=== PATIENT | female | born 1930 | race Caucasian/White ===

== ENCOUNTER 2018-06-27 14:24 | Inpatient (IN) | payer MEDICARE, OTHER ==
[2018-06-27] MEDS ORDERED: ONDANSETRON 4 MG/2 ML VIAL IVP PRN (15:06)
[2018-06-27] MEDS: SODIUM CHLORIDE FLUSH 0.9% 10 ML SYRINGE IVP SCH (20:30)
[2018-06-27] MEDS: DEXTROSE 5%-0.45% NACL 1,000 ML IV SCH (20:30)
--- NOTE | 2018-06-27 20:35 | ANESTHESIA PROCEDURE NOTE ---
Procedure Notes: Called for difficult IV start. #20 G IV started to Left AC X1 attempt. Lab work drawn. Saline lock applied and flushed.
[2018-06-27 20:49] LABS: BASOPHILS # (AUTO) 0.1 10^3/uL (0.0-0.1); BASOPHILS % (AUTO) 0.6 %; EOSINOPHILS # (AUTO) 0.2 10^3/uL (0.0-0.7); EOSINOPHILS % (AUTO) 1.5 %; HGB - HEMOGLOBIN 10.4 g/dL (12.0-16.0); LYMPHOCYTES % (AUTO) 7.9 %; MEAN CORPUSCULAR HEMOGLOBIN 30.1 pg (27.0-31.0); MEAN CORPUSCULAR VOLUME 91.1 fL (81.0-99.0); MEAN PLATELET VOLUME 9.6 fL (7.9-10.8); MONOCYTES % (AUTO) 7.4 %; NEUTROPHILS # (AUTO) 10.9 10^3/uL (1.5-6.6); NEUTROPHILS % (AUTO) 82.6 %; PLT - PLATELET COUNT 189 10^3/uL (130-450); RED BLOOD COUNT 3.47 10^6/uL (4.20-5.40); RED CELL DISTRIBUTION WIDTH 13.2 % (12.0-15.0); WHITE BLOOD COUNT 13.2 x10^3/uL (4.8-10.8)
[2018-06-27 21:14] LABS: ALBUMIN 2.7 g/dL (3.2-5.5); BILIRUBIN,TOTAL 0.5 mg/dL (0.2-1.0); CALCIUM 7.8 mg/dL (8.5-10.3); CREATININE 2.1 mg/dL (0.4-1.0); MAGNESIUM 2.1 mg/dL (1.7-2.8); TOTAL PROTEIN 5.5 g/dL (6.7-8.2)
[2018-06-27 21:17] LABS: HB2 TOTAL 10.9 g/dL; HEMOGLOBIN A1C 0.53 g/dL; HEMOGLOBIN A1C % 6.6 % (4.6-6.2)
[2018-06-27] MEDS: FAMOTIDINE 20 MG TABLET PO SCH (22:36)
[2018-06-27] MEDS: HEPARIN 5,000 UNIT/ML VIAL SUBQ SCH (22:56)
[2018-06-27] MEDS: ACETAMINOPHEN 325 MG TABLET PO PRN (23:44)
[2018-06-28] MEDS: NYSTATIN CREAM 15 GM TUBE TOP SCH ×3 (00:57→20:51)
[2018-06-28] MEDS: SODIUM CHLORIDE FLUSH 0.9% 10 ML SYRINGE IVP SCH ×4 (05:25→23:36)
[2018-06-28] MEDS: DEXTROSE 5%-0.45% NACL 1,000 ML IV SCH ×2 (05:25→06:26)
[2018-06-28 05:54] LABS: BASOPHILS # (AUTO) 0.1 10^3/uL (0.0-0.1); BASOPHILS % (AUTO) 0.5 %; EOSINOPHILS # (AUTO) 0.2 10^3/uL (0.0-0.7); LYMPHOCYTES # (AUTO) 1.4 10^3/uL (1.5-3.5); LYMPHOCYTES % (AUTO) 12.1 %; MEAN CORPUSCULAR HEMOGLOBIN 30.1 pg (27.0-31.0); MEAN CORPUSCULAR HGB CONC 33.1 g/dL (32.0-36.0); MEAN CORPUSCULAR VOLUME 90.8 fL (81.0-99.0); MEAN PLATELET VOLUME 9.4 fL (7.9-10.8); MONOCYTES # (AUTO) 0.9 10^3/uL (0.0-1.0); MONOCYTES % (AUTO) 7.9 %; NEUTROPHILS % (AUTO) 77.5 %; PLT - PLATELET COUNT 165 10^3/uL (130-450); RED BLOOD COUNT 3.32 10^6/uL (4.20-5.40); RED CELL DISTRIBUTION WIDTH 13.7 % (12.0-15.0); WHITE BLOOD COUNT 11.6 x10^3/uL (4.8-10.8)
[2018-06-28 06:08] LABS: ALBUMIN 2.6 g/dL (3.2-5.5); ALBUMIN/GLOBULIN RATIO 0.9 (1.0-2.2); BILIRUBIN,TOTAL 0.4 mg/dL (0.2-1.0); CALCIUM 7.5 mg/dL (8.5-10.3); TOTAL PROTEIN 5.4 g/dL (6.7-8.2)
--- NOTE | 2018-06-28 06:15 | HISTORY & PHYSICAL EXAMINATION ---
Chief Complaint - Chief Complaint Chief Complaint: hypoglycemia History of Present Illness - Admitted From Admitted From:: [facility] ED - History Obtained From Records Reviewed: yes - History of Present Illness HPI Comment/Other: Patient is an 87 y/o female who presented to [facility] as a direct admit from [facility] for hypoglycemia. Her symptoms initially started 6 days ago when on night she ate something bad from her refrigerator. She had nausea, vomiting and diarrhea for three days. For those 3 days she was admitted at [facility]. She went home on Monday, had a frozen meal and her symptoms started again so she went back to the hospital that same day. She describes that she was was speaking complete "jibberish" when he manager care management found her. She had not taken any of her medication except for carvedilol. She has generally had poor po intake this week. Today she slipped from the chair/recliner in which she normally sleeps and could not get up/ As a result she was flailing/thrashing around on the floor and hurt her knees, right shoulder and right wrist. It was here her director trading found her and called EMS. She was found to have a blood glucose of 30. She was transferred to [facility] because [facility] was on divert. Upon arrival her blood glucose was in the 50 despite having orange juice at [place] and being placed on a D5 drip. Further work up in [facility] included CK which came back elevated at 1475. At the time of my exam, she was resting comfortably. She denied chest pain, reports dyspnea with laying flat, hence she slips in her recliner. She reports chills but no fever. She uses a walker to get around the house. She drives herself but only in the day time. 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) - Past Surgical History General: reports: Appendectomy Cardiovascular: reports: Pacemaker HEENT: reports: Other Meds/Allgy - Allergies Allergies/Adverse Reactions: Allergies Allergy/AdvReac Type Severity Reaction Status Date / Time allopurinol Allergy Itching Verified 06/27/18 22:04 baclofen Allergy Itching Verified 06/27/18 22:03 clindamycin Allergy Itching Verified 06/27/18 21:56 codeine Allergy Itching Verified 06/27/18 21:57 desipramine Allergy Itching Verified 06/27/18 21:58 doxycycline Allergy Itching Verified 06/27/18 21:59 Horse/Equine Containing Allergy Itching Verified 06/27/18 21:59 Products hydrocodone Allergy Itching Verified 06/27/18 22:01 lactose Allergy Cramps Verified 06/27/18 22:00 NSAIDS (Non-Steroidal Allergy Itching Verified 06/27/18 22:02 Anti-Inflamma tramadol Allergy Itching Verified 06/27/18 22:03 egg AdvReac Intermediate Respiratory Verified 06/27/18 21:56 aspirin AdvReac Respiratory Verified 06/27/18 21:56 Beef Containing Products AdvReac Respiratory Verified 06/27/18 22:04 iodine AdvReac Respiratory Verified 06/27/18 22:02 latex AdvReac Respiratory Verified 06/27/18 22:00 shellfish derived AdvReac Respiratory Verified 06/27/18 22:02 Review of Systems - Constitutional Constitutional: reports: Fatigue, Chills, Diaphoresis. denies: Fever - Eyes Eyes: denies: Pain, Dipolpia - Ears, Nose & Throat Ears, Nose & Throat: denies: Vertigo, Nasal pain, Nasal discharge, Sore throat, Hoarseness - Cardiovascular Cariovascular: reports: Orthopnea. denies: Irregular heart rate, Palpitations, Chest pain, Edema, Lightheadedness, Syncope - Respiratory Respiratory: denies: Cough, Sputum production, Wheezing, Snoring, Hemoptysis, Orthopnea, SOB at rest, SOB with exertion - Gastrointestinal Gastrointestinal: reports: Diarrhea, Nausea, Vomiting, Poor appetite. denies: Abdominal pain, Abdominal distention, Constipation - Genitourinary Genitourinary: denies: Dysuria, Frequency, Urgency - Musculoskeletal Musculoskeletal: reports: Joint pain (bruise wrists, right shoulder and knees). denies: Back pain, Stiffness - Integumentary Integumentary: denies: Rash, Pruritis, Lesions - Hematologic/Lymphatic Hematologic/Lymphatic: reports: Bruising. denies: Anemia, Petechiae Prior Level of Functionality: She uses a walker to get around the house. She drives herself but only in the day time. She lives alone in [place]. She has a caregiver who comes to see her Exam - Vital Signs Vital Signs: Vital Signs x48h Temp Pulse Resp BP Pulse Ox 06/28/18 05:48 36.7 C 72 18 168/90 H 96 06/28/18 00:00 36.8 C 80 18 162/77 H 96 - Physical Exam General Appearance: positive: No acute distress, Alert, Mild distress Eyes Bilateral: positive: Normal inspection, PERRL, EOMI ENT: positive: ENT inspection nml, No signs of dehydration Neck: positive: Nml inspection, No JVD, Trachea midline Respiratory: positive: Chest non-tender, No respiratory distress, Breath sounds nml Cardiovascular: positive: Regular rate & rhythm Abdomen: positive: Non-tender, No organomegaly, Nml bowel sounds. negative: Tenderness, Guarding, Rebound Skin: positive: Skin rash (intrigenous areas: candidial rash). negative: Color nml (bruising on wrists and knees) Extremities: positive: Joint swelling (wrist tender) Neurologic/Psychiatric: positive: Oriented x3 Conclusion/Plan - Problem List (1) Hypoglycemia Conclusion/Plan: Likely from poor po intake Hold any diabetic medications Patient on D5+half NS at 100ml/hr. Blood glucose currently 122 Will continue to monitor (2) Rhabdomyolysis Conclusion/Plan: Likely 2/2 to flailing around on the floor. D5+ half normal saline running at 100 ml/hr When blood glucose normalizes, will change fluid to normal saline to run at a higher rate Trend CK Qualifiers: Rhabdomyolysis type: traumatic Encounter type: initial encounter Qualifi ed Code(s): T79.6XXA - Traumatic ischemia of muscle, initial encounter (3) [id number] kidney injury Conclusion/Plan: Likely 2/2 Rhabdomyolysis IV hydration. Expect improvement (4) Hypothyroidism Conclusion/Plan: Continue synthroid at home dose Qualifiers: Hypothyroidism type: acquired Qualified Code(s): E03.9 - Hypothyroidism, unspecified (5) Diabetes mellitus, type II Conclusion/Plan: Glipizide held while patient hypoglycemic Qualifiers: Diabetes mellitus assistant printer floor covering insulin use: with assistant printer floor covering use (6) Rose rash of groin Conclusion/Plan: Nystatin cream ordered (7) Asthma Conclusion/Plan: at baseline Continue home regimen Qualifiers: Asthma severity: moderate Asthma persistence: persistent Asthma complication type: uncomplicated Qualified Code(s): J45.40 - Moderate p ersistent asthma, uncomplicated (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 Pat follows with wound care out patient. - Lab Results Fish Bones: 06/28/18 04:55 06/28/18 04:55 Core Measures - Anticipated LOS I expect patient to be DC'd or transferred within 96 hours.: Yes - DVT/VTE - Prophylaxis VTE/DVT Device ordered at admit?: Yes Not Ordered - Medical Reason: Contraindicated (wpunds on lower extremities bilaterally) VTE/DVT Prophylaxis med ordered at admit?: Yes
[2018-06-28] MEDS: ACETAMINOPHEN 325 MG TABLET PO PRN ×2 (08:08→20:30)
[2018-06-28] MEDS: HEPARIN 5,000 UNIT/ML VIAL SUBQ SCH ×2 (08:08→20:37)
[2018-06-28] MEDS: FAMOTIDINE 20 MG TABLET PO SCH (08:09)
[2018-06-28] MEDS: POLYETHYLENE GLYCOL 3350 17 GM PACKET PO SCH (08:10)
[2018-06-28] MEDS ORDERED: hydrALAZINE INJ 20 MG/ML VIAL IVP PRN (08:41)
[2018-06-28] MEDS ORDERED: SODIUM CHLORIDE 0.9% 1,000 ML IV SCH (09:00)
[2018-06-28] MEDS: CARVEDILOL 12.5 MG TABLET PO SCH ×2 (10:39→20:32)
[2018-06-28] MEDS: INSULIN ASPART 300 UNIT/3 ML PEN SUBQ SCH ×3 (13:08→20:41)
[2018-06-28] MEDS: glipiZIDE 5 MG TABLET PO SCH ×2 (16:05→20:40)
--- NOTE | 2018-06-28 17:25 | PROVIDER PROGRESS NOTE ---
Subjective - Prog Note Date Prog Note Date: 06/28/18 - Subjective Pt reports feeling: Improved Subjective: pt feel well better today. pt report she had N/V/D for couples days at home, she did not eat much at home, she thought it is the reason why her sugar is so low. She report it has never happened to her before like this. She denies muscle pain, chest pain, fever, SOB Current Medications - Current Medications Current Medications: Active Medications Acetaminophen (Tylenol) 650 mg PO Q4HR PRN PRN Reason: Pain 1 to 4 Last Admin: 06/28/18 08:08 Dose: 650 mg Albuterol () 2.5 mg INH RTQ4H PRN PRN Reason: Wheezing Carvedilol (Coreg) 25 mg PO BID [facility] Last Admin: 06/28/18 10:39 Dose: 25 mg Famotidine (Pepcid) 20 mg PO DAILY [facility] Last Admin: 06/28/18 08:09 Dose: 20 mg Glipizide (Glucotrol) 2.5 mg PO BID [facility] Last Admin: 06/28/18 16:05 Dose: 2.5 mg Heparin Sodium (Porcine) () 5,000 unit SUBQ BID [facility] Last Admin: 06/28/18 08:08 Dose: 5,000 unit Hydralazine HCl (Apresoline Inj) 10 mg IVP QID PRN PRN Reason: Hypertensive Emergency Sodium Chloride (Normal Saline 0.9%) 1,000 mls @ 83.3 mls/hr IV .Q12H1M [facility] Stop: 06/29/18 13:37 Insulin Aspart (Novolog) 1 - 5 unit SUBQ 0800,1200,1700,2100 [facility]; Protocol Last Admin: 06/28/18 17:26 Dose: 1 unit Levothyroxine Sodium (Synthroid) 125 mcg PO QDAC [facility] Mineral Oil (Cavilon) 1 applic TOP PRN PRN PRN Reason: Skin Care Nystatin (Mycostatin Cream) 1 applic TOP BID [facility] Last Admin: 06/28/18 13:08 Dose: 1 applic Ondansetron HCl (Zofran Inj) 4 mg IVP Q6HR PRN PRN Reason: Nausea / Vomiting Polyethylene Glycol (Miralax) 17 gm PO DAILY [facility] Last Admin: 06/28/18 08:10 Dose: Not Given Potassium Chloride (Micro-K) 20 meq PO DAILY [facility] Sodium Chloride (Normal Saline Flush 0.9%) 10 ml IVP PRN PRN PRN Reason: NEEDED PER PROVIDER ORDERS Sodium Chloride (Normal Saline Flush 0.9%) 10 ml IVP 0100,0900,1700 [facility] Last Admin: 06/28/18 08:10 Dose: Not Given Carvedilol 25 mg PO BID 06/28/18 Diphenoxylate HCl/Atropine [Diphenoxylate-Atrop 2.5-0.025] 1 tab PO QID PRN 06/28/18 Furosemide 40 mg PO TID 06/28/18 Levothyroxine Sodium 125 mcg PO QDAC 06/28/18 Potassium Chloride 20 meq PO DAILY 06/28/18 glipiZIDE [Glipizide] 2.5 mg PO BID 06/28/18 Objective - Vital Signs/Intake & Output Vital Signs: Vital Signs x48h Temp Pulse Pulse Resp BP Pulse Ox 06/28/18 15:30 37.0 C 78 20 110/93 H 96 06/28/18 14:32 37.0 C 75 19 155/46 H 97 06/28/18 13:59 37 C 80 18 96 06/28/18 10:53 79 171/81 H Intake & Output: Intake & Output 06/25/18 06/26/18 06/27/18 06/28/18 23:59 23:59 23:59 23:59 Intake Total 972 2658.000 Output Total 250 Balance 972 2408.000 - Objective General Appearance: positive: No acute distress, Alert. negative: Lethargic Eyes Bilateral: positive: Normal inspection, PERRL, No lid inflammation, Conjunctivae nml ENT: positive: ENT inspection nml, Pharynx nml, No signs of dehydration. negative: Purulent nasal drainage, Pharyngeal erythema, Oral lesions Neck: positive: Nml inspection, Thyroid nml, No JVD, Trachea midline. negative: Thyromegaly, Lymphadenopathy (R), Lymphadenopathy (L), Stiff neck, Swelling/bruising, Tracheal deviation Respiratory: positive: Chest non-tender, No respiratory distress, Breath sounds nml. negative: Wheezes, Rales, Rhonchi Cardiovascular: positive: Regular rate & rhythm, No murmur, No gallop. negative: Irregularly irregular, Extrasystoles, Tachycardia, Bradycardia, JVD present, Systolic murmur, Diastolic murmur Peripheral Pulses: 2+ Radial (R), 2+ Radial (L), 2+ Dorsalis pedis (R), 2+ Dorsalis pedis (L) Abdomen: positive: Non-tender, No organomegaly, Nml bowel sounds, No distention. negative: Tenderness, Guarding, Rebound Back: positive: Nml inspection. negative: CVA tenderness (R), CVA tenderness (L) Skin: positive: Color nml, No rash, Warm, Dry. negative: Cyanosis, Diaphoresis, Pallor Extremities: positive: Non-tender, Full ROM, Nml appearance. negative: Calf t enderness, Joint swelling, Bryce's sign/cords Neurologic/Psychiatric: positive: Oriented x3, Sensation nml, Mood/affect nml. negative: Weakness, Sensory loss, Facial droop, Slurred/abnml speech, Depressed mood/affect - Lab Results Fish Bones: 06/28/18 04:55 06/28/18 04:55 Other Labs: Lab Results x24hrs 06/28/18 06/28/18 06/28/18 Range/Units 17:01 12:07 08:00 WBC (4.8-10.8) x10^3/uL RBC (4.20-5.40) 10^6/uL Hgb (12.0-16.0) g/dL Hct (37.0-47.0) % MCV (81.0-99.0) fL MCH (27.0-31.0) pg MCHC (32.0-36.0) g/dL RDW (12.0-15.0) % Plt Count (130-450) 10^3/uL MPV (7.9-10.8) fL Neut # (Auto) (1.5-6.6) 10^3/uL Lymph # (Auto) (1.5-3.5) 10^3/uL [place] # (Auto) (0.0-1.0) 10^3/uL Eos # (Auto) (0.0-0.7) 10^3/uL Baso # (Auto) (0.0-0.1) 10^3/uL Absolute Nucleated RBC x10^3/uL Nucleated RBC % /100WBC Sodium (135-145) mmol/L Potassium (3.5-5.0) mmol/L Chloride (101-111) mmol/L Carbon Dioxide (21-32) mmol/L Anion Gap (6-13) BUN (6-20) mg/dL Creatinine (0.4-1.0) mg/dL Estimated GFR (MDRD) (>89) Glucose (70-100) mg/dL POC Whole Bld Glucose 178 H 168 H 123 H (70 - 100) mg/dL Glycated Hemoglobin (4.6-6.2) % Estim Average Glucose (70-100) Calcium (8.5-10.3) mg/dL Magnesium (1.7-2.8) mg/dL Total Bilirubin (0.2-1.0) mg/dL AST (10-42) IU/L ALT (10-60) IU/L Alkaline Phosphatase (42-121) IU/L Total Creatine Kinase (22-269) IU/L B-Natriuretic Peptide (5-100) pg/mL Total Protein (6.7-8.2) g/dL Albumin (3.2-5.5) g/dL Globulin (2.1-4.2) g/dL Albumin/Globulin Ratio (1.0-2.2) TSH (0.34-5.60) uIU/mL 06/28/18 06/28/18 06/28/18 Range/Units 04:55 04:55 04:55 WBC (4.8-10.8) x10^3/uL RBC (4.20-5.40) 10^6/uL Hgb (12.0-16.0) g/dL Hct (37.0-47.0) % MCV (81.0-99.0) fL MCH (27.0-31.0) pg MCHC (32.0-36.0) g/dL RDW (12.0-15.0) % Plt Count (130-450) 10^3/uL MPV (7.9-10.8) fL Neut # (Auto) (1.5-6.6) 10^3/uL Lymph # (Auto) (1.5-3.5) 10^3/uL [place] # (Auto) (0.0-1.0) 10^3/uL Eos # (Auto) (0.0-0.7) 10^3/uL Baso # (Auto) (0.0-0.1) 10^3/uL Absolute Nucleated RBC x10^3/uL Nucleated RBC % /100WBC Sodium (135-145) mmol/L Potassium (3.5-5.0) mmol/L Chloride (101-111) mmol/L Carbon Dioxide (21-32) mmol/L Anion Gap (6-13) BUN (6-20) mg/dL Creatinine (0.4-1.0) mg/dL Estimated GFR (MDRD) (>89) Glucose (70-100) mg/dL POC Whole Bld Glucose (70 - 100) mg/dL Glycated Hemoglobin (4.6-6.2) % Estim Average Glucose (70-100) Calcium (8.5-10.3) mg/dL Magnesium (1.7-2.8) mg/dL Total Bilirubin (0.2-1.0) mg/dL AST (10-42) IU/L ALT (10-60) IU/L Alkaline Phosphatase (42-121) IU/L Total Creatine Kinase 990 H (22-269) IU/L B-Natriuretic Peptide 299 H (5-100) pg/mL Total Protein (6.7-8.2) g/dL Albumin (3.2-5.5) g/dL Globulin (2.1-4.2) g/dL Albumin/Globulin Ratio (1.0-2.2) TSH 1.62 (0.34-5.60) uIU/mL 06/28/18 06/28/18 06/27/18 Range/Units 04:55 04:55 20:23 WBC 11.6 H (4.8-10.8) x10^3/uL RBC 3.32 L (4.20-5.40) 10^6/uL Hgb 10.0 L (12.0-16.0) g/dL Hct 30.1 L (37.0-47.0) % MCV 90.8 (81.0-99.0) fL MCH 30.1 (27.0-31.0) pg MCHC 33.1 (32.0-36.0) g/dL RDW 13.7 (12.0-15.0) % Plt Count 165 (130-450) 10^3/uL MPV 9.4 (7.9-10.8) fL Neut # (Auto) 9.0 H (1.5-6.6) 10^3/uL Lymph # (Auto) 1.4 L (1.5-3.5) 10^3/uL [place] # (Auto) 0.9 (0.0-1.0) 10^3/uL Eos # (Auto) 0.2 (0.0-0.7) 10^3/uL Baso # (Auto) 0.1 (0.0-0.1) 10^3/uL Absolute Nucleated RBC 0.01 x10^3/uL Nucleated RBC % 0.1 /100WBC Sodium 139 (135-145) mmol/L Potassium 3.4 L (3.5-5.0) mmol/L Chloride 109 (101-111) mmol/L Carbon Dioxide 20 L (21-32) mmol/L Anion Gap 10.0 (6-13) BUN 53 H (6-20) mg/dL Creatinine 2.0 H (0.4-1.0) mg/dL Estimated GFR (MDRD) 24 L (>89) Glucose 122 H (70-100) mg/dL POC Whole Bld Glucose 75 (70 - 100) mg/dL Glycated Hemoglobin (4.6-6.2) % Estim Average Glucose (70-100) Calcium 7.5 L (8.5-10.3) mg/dL Magnesium (1.7-2.8) mg/dL Total Bilirubin 0.4 (0.2-1.0) mg/dL AST 45 H (10-42) IU/L ALT 23 (10-60) IU/L Alkaline Phosphatase 74 (42-121) IU/L Total Creatine Kinase (22-269) IU/L B-Natriuretic Peptide (5-100) pg/mL Total Protein 5.4 L (6.7-8.2) g/dL Albumin 2.6 L (3.2-5.5) g/dL Globulin 2.8 (2.1-4.2) g/dL Albumin/Globulin Ratio 0.9 L (1.0-2.2) TSH (0.34-5.60) uIU/mL 03/06/27/18 06/27/18 Range/Units 20:20 20:20 20:20 WBC 13.2 H (4.8-10.8) x10^3/uL RBC 3.47 L (4.20-5.40) 10^6/uL Hgb 10.4 L (12.0-16.0) g/dL Hct 31.6 L (37.0-47.0) % MCV 91.1 (81.0-99.0) fL MCH 30.1 (27.0-31.0) pg MCHC 33.0 (32.0-36.0) g/dL RDW 13.2 (12.0-15.0) % Plt Count 189 (130-450) 10^3/uL MPV 9.6 (7.9-10.8) fL Neut # (Auto) 10.9 H (1.5-6.6) 10^3/uL Lymph # (Auto) 1.0 L (1.5-3.5) 10^3/uL [place] # (Auto) 1.0 (0.0-1.0) 10^3/uL Eos # (Auto) 0.2 (0.0-0.7) 10^3/uL Baso # (Auto) 0.1 (0.0-0.1) 10^3/uL Absolute Nucleated RBC 0.00 x10^3/uL Nucleated RBC % 0.0 /100WBC Sodium 142 (135-145) mmol/L Potassium 3.2 L (3.5-5.0) mmol/L Chloride 109 (101-111) mmol/L Carbon Dioxide 21 (21-32) mmol/L Anion Gap 12.0 (6-13) BUN 53 H (6-20) mg/dL Creatinine 2.1 H (0.4-1.0) mg/dL Estimated GFR (MDRD) 22 L (>89) Glucose 74 (70-100) mg/dL POC Whole Bld Glucose (70 - 100) mg/dL Glycated Hemoglobin 6.6 H (4.6-6.2) % Estim Average Glucose 143 H (70-100) Calcium 7.8 L (8.5-10.3) mg/dL Magnesium 2.1 (1.7-2.8) mg/dL Total Bilirubin 0.5 (0.2-1.0) mg/dL AST 52 H (10-42) IU/L ALT 25 (10-60) IU/L Alkaline Phosphatase 76 (42-121) IU/L Total Creatine Kinase 1475 H* (22-269) IU/L B-Natriuretic Peptide (5-100) pg/mL Total Protein 5.5 L (6.7-8.2) g/dL Albumin 2.7 L (3.2-5.5) g/dL Globulin 2.8 (2.1-4.2) g/dL Albumin/Globulin Ratio 1.0 (1.0-2.2) TSH (0.34-5.60) uIU/mL 06/27/18 06/27/18 06/27/18 Range/Units 19:32 19:06 18:40 WBC (4.8-10.8) x10^3/uL RBC (4.20-5.40) 10^6/uL Hgb (12.0-16.0) g/dL Hct (37.0-47.0) % MCV (81.0-99.0) fL MCH (27.0-31.0) pg MCHC (32.0-36.0) g/dL RDW (12.0-15.0) % Plt Count (130-450) 10^3/uL MPV (7.9-10.8) fL Neut # (Auto) (1.5-6.6) 10^3/uL Lymph # (Auto) (1.5-3.5) 10^3/uL [place] # (Auto) (0.0-1.0) 10^3/uL Eos # (Auto) (0.0-0.7) 10^3/uL Baso # (Auto) (0.0-0.1) 10^3/uL Absolute Nucleated RBC x10^3/uL Nucleated RBC % /100WBC Sodium (135-145) mmol/L Potassium (3.5-5.0) mmol/L Chloride (101-111) mmol/L Carbon Dioxide (21-32) mmol/L Anion Gap (6-13) BUN (6-20) mg/dL Creatinine (0.4-1.0) mg/dL Estimated GFR (MDRD) (>89) Glucose (70-100) mg/dL POC Whole Bld Glucose 59 L* 52 L* 53 L* (70 - 100) mg/dL Glycated Hemoglobin (4.6-6.2) % Estim Average Glucose (70-100) Calcium (8.5-10.3) mg/dL Magnesium (1.7-2.8) mg/dL Total Bilirubin (0.2-1.0) mg/dL AST (10-42) IU/L ALT (10-60) IU/L Alkaline Phosphatase (42-121) IU/L Total Creatine Kinase (22-269) IU/L B-Natriuretic Peptide (5-100) pg/mL Total Protein (6.7-8.2) g/dL Albumin (3.2-5.5) g/dL Globulin (2.1-4.2) g/dL Albumin/Globulin Ratio (1.0-2.2) TSH (0.34-5.60) uIU/mL ABX Reporting Has patient been on IV antibiotics over the past 48 hours?: No Sepsis Event Note (H) - Evaluation Current Stage of Sepsis: Ruled out Assessment/Plan - Problem List (1) Hypoglycemia Impression: 06/28 resolved. pt had N/V/D for couples of day, did not eat much, that is reason why she had hypoglycemia, per pt report. resume cardocontrol diet ACHS test for glucose hypoglycemia protocol Likely from poor po intake Hold any diabetic medications Patient on D5+half NS at 100ml/hr. Blood glucose currently 122 Will continue to monitor (2) Rhabdomyolysis Conclusion/Plan: 06/28 today CK is down 990 Likely 2/2 to flailing around on the floor. D5+ half normal saline running at 100 ml/hr When blood glucose normalizes, will change fluid to normal saline to run at a higher rate Trend CK (3) Cxiig-ve-ojdbzje kidney injury Conclusion/Plan: Likely 2/2 Rhabdomyolysis IV hydration. Expect improvement (4) Hypothyroidism Conclusion/Plan: Continue synthroid at home dose Qualifiers: Hypothyroidism type: acquired Qualified Code(s): E03.9 - Hypothyroidism, unspecified (5) Diabetes mellitus, type II Conclusion/Plan: Glipizide held while patient hypoglycemic Qualifiers: Diabetes mellitus assisted insulin use: with mission manager use (6) Rose rash of groin Conclusion/Plan: Nystatin cream ordered (7) Asthma Conclusion/Plan: at baseline Continue home regimen Qualifiers: Asthma severity: moderate Asthma persistence: persistent Asthma complica tion type: uncomplicated Qualified Code(s): J45.40 - Moderate persistent asthma, uncomplicated (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 Pat follows with wound care out patient.
[2018-06-28] MEDS: SODIUM CHLORIDE 0.9% 1,000 ML IV SCH ×2 (18:05→23:10)
[2018-06-28] MEDS: POTASSIUM CHLORIDE 10 MEQ CAPSULE PO SCH (18:13)
[2018-06-29 05:23] LABS: BASOPHILS # (AUTO) 0.1 10^3/uL (0.0-0.1); BASOPHILS % (AUTO) 0.4 %; EOSINOPHILS # (AUTO) 0.2 10^3/uL (0.0-0.7); EOSINOPHILS % (AUTO) 1.7 %; HGB - HEMOGLOBIN 9.5 g/dL (12.0-16.0); LYMPHOCYTES # (AUTO) 1.3 10^3/uL (1.5-3.5); LYMPHOCYTES % (AUTO) 8.9 %; MEAN CORPUSCULAR HEMOGLOBIN 30.6 pg (27.0-31.0); MEAN CORPUSCULAR HGB CONC 33.4 g/dL (32.0-36.0); MEAN CORPUSCULAR VOLUME 91.6 fL (81.0-99.0); MEAN PLATELET VOLUME 9.5 fL (7.9-10.8); MONOCYTES # (AUTO) 0.9 10^3/uL (0.0-1.0); MONOCYTES % (AUTO) 6.5 %; NEUTROPHILS # (AUTO) 11.8 10^3/uL (1.5-6.6); NEUTROPHILS % (AUTO) 82.5 %; PLT - PLATELET COUNT 150 10^3/uL (130-450); RED BLOOD COUNT 3.11 10^6/uL (4.20-5.40); RED CELL DISTRIBUTION WIDTH 13.5 % (12.0-15.0); WHITE BLOOD COUNT 14.3 x10^3/uL (4.8-10.8)
[2018-06-29 05:33] LABS: ALBUMIN 2.6 g/dL (3.2-5.5); ALBUMIN/GLOBULIN RATIO 0.9 (1.0-2.2); BILIRUBIN,TOTAL 0.6 mg/dL (0.2-1.0); CALCIUM 7.9 mg/dL (8.5-10.3); CREATININE 2.1 mg/dL (0.4-1.0); TOTAL PROTEIN 5.4 g/dL (6.7-8.2)
[2018-06-29] MEDS: LEVOTHYROXINE 125 MCG TABLET PO SCH (06:23)
[2018-06-29] MEDS: POLYETHYLENE GLYCOL 3350 17 GM PACKET PO SCH (08:50)
[2018-06-29] MEDS: glipiZIDE 5 MG TABLET PO SCH ×2 (08:52→21:24)
[2018-06-29] MEDS: POTASSIUM CHLORIDE 10 MEQ CAPSULE PO SCH (08:53)
[2018-06-29] MEDS: INSULIN ASPART 300 UNIT/3 ML PEN SUBQ SCH ×4 (08:54→22:01)
[2018-06-29] MEDS: NYSTATIN CREAM 15 GM TUBE TOP SCH ×2 (08:54→22:55)
[2018-06-29] MEDS: FAMOTIDINE 20 MG TABLET PO SCH (08:54)
[2018-06-29] MEDS: SODIUM CHLORIDE FLUSH 0.9% 10 ML SYRINGE IVP SCH ×3 (08:54→23:15)
[2018-06-29] MEDS: HEPARIN 5,000 UNIT/ML VIAL SUBQ SCH ×2 (08:58→21:27)
[2018-06-29] MEDS: CARVEDILOL 12.5 MG TABLET PO SCH ×2 (09:08→21:24)
[2018-06-29 11:17] LABS: BILIRUBIN,URINE NEGATIVE (NEGATIVE); GLUCOSE, URINE (UA) NEGATIVE (NEGATIVE); KETONES,URINE (UA) NEGATIVE (NEGATIVE); LEUKOCYTE ESTERASE, URINE LARGE (NEGATIVE); NITRITE,URINE POSITIVE (NEGATIVE); OCCULT BLOOD,URINE SMALL (NEGATIVE); PROTEIN,URINE 100 mg/dL (NEGATIVE); UROBILINOGEN,URINE 0.2 (NORMAL) E.U./dL (NORMAL)
[2018-06-29 11:25] LABS: CLARITY,URINE CLOUDY (CLEAR)
[2018-06-29 11:36] LABS: RBC,URINE 0-5 /HPF (0-5); SQUAMOUS EPITHELIAL CELL,UR FEW Squamous (<= Few)
[2018-06-29 11:37] LABS: BACTERIA,URINE Few /HPF (None Seen); WBC CLUMPS,URINE PRESENT
--- NOTE | 2018-06-29 13:18 | XRAY Report ---
Reason: SOB Procedure Date: 06/29/2018 Accession Number: [id number] / [id number] Procedure: XR - Chest 1 View X-Ray CPT Code: 40116 FULL RESULT: EXAM: CHEST RADIOGRAPHY EXAM DATE: 06/29/2018 10:21 AM. CLINICAL HISTORY: Shortness of breath. COMPARISON: XR CHEST 1V 06/27/2018 9:47 AM. TECHNIQUE: 1 view. FINDINGS: Lungs/Pleura: No focal opacities evident. No pleural effusion. No pneumothorax. Mediastinum: Stable cardiomegaly with biventricular pacemaker and atrial sense lead in expected locations. Other: None. IMPRESSION: Stable cardiomegaly. RADIA
[2018-06-29] MEDS ORDERED: cefTRIAXone 1 GM VIAL IVP SCH (15:47)
--- NOTE | 2018-06-29 17:02 | PROVIDER PROGRESS NOTE ---
Objective - Vital Signs/Intake & Output Vital Signs: Vital Signs x48h Pulse BP 06/29/18 13:45 72 150/50 H 06/29/18 11:50 72 150/50 H Intake & Output: Intake & Output 06/26/18 06/27/18 06/28/18 06/29/18 23:59 23:59 23:59 23:59 Intake Total 972 3616.333 1500 Output Total 1050 500 Balance 972 2566.333 1000 - Lab Results Fish Bones: 06/29/18 04:35 06/29/18 04:35 Other Labs: Lab Results x24hrs 06/29/18 06/29/18 06/29/18 Range/Units 16:36 11:51 10:52 WBC (4.8-10.8) x10^3/uL RBC (4.20-5.40) 10^6/uL Hgb (12.0-16.0) g/dL Hct (37.0-47.0) % MCV (81.0-99.0) fL MCH (27.0-31.0) pg MCHC (32.0-36.0) g/dL RDW (12.0-15.0) % Plt Count (130-450) 10^3/uL MPV (7.9-10.8) fL Neut # (Auto) (1.5-6.6) 10^3/uL Lymph # (Auto) (1.5-3.5) 10^3/uL [place] # (Auto) (0.0-1.0) 10^3/uL Eos # (Auto) (0.0-0.7) 10^3/uL Baso # (Auto) (0.0-0.1) 10^3/uL Absolute Nucleated RBC x10^3/uL Nucleated RBC % /100WBC Sodium (135-145) mmol/L Potassium (3.5-5.0) mmol/L Chloride (101-111) mmol/L Carbon Dioxide (21-32) mmol/L Anion Gap (6-13) BUN (6-20) mg/dL Creatinine (0.4-1.0) mg/dL Estimated GFR (MDRD) (>89) Glucose (70-100) mg/dL POC Whole Bld Glucose 188 H 164 H (70 - 100) mg/dL Calcium (8.5-10.3) mg/dL Total Bilirubin (0.2-1.0) mg/dL AST (10-42) IU/L ALT (10-60) IU/L Alkaline Phosphatase (42-121) IU/L Total Creatine Kinase (22-269) IU/L Total Protein (6.7-8.2) g/dL Albumin (3.2-5.5) g/dL Globulin (2.1-4.2) g/dL Albumin/Globulin Ratio (1.0-2.2) Urine Color YELLOW Urine Clarity CLOUDY (CLEAR) Urine pH 6.0 (5.0-7.5) PH Ur Specific [place] 1.010 (1.002-1.030) Urine Protein 100 H (NEGATIVE) mg/dL Urine Glucose (UA) NEGATIVE (NEGATIVE) mg/dL Urine Ketones NEGATIVE (NEGATIVE) mg/dL Urine Occult Blood SMALL H (NEGATIVE) Urine Nitrite POSITIVE H (NEGATIVE) Urine Bilirubin NEGATIVE (NEGATIVE) Urine Urobilinogen 0.2 (NORMAL) (NORMAL) E.U./dL Ur Leukocyte Esterase LARGE H (NEGATIVE) Urine RBC 0-5 (0-5) /HPF Urine WBC >25 H (0-5) /HPF Urine WBC Clumps PRESENT Ur Squamous Epith Cells FEW Squamous (<= Few) Urine Bacteria Few (None Seen) /HPF Urine Culture Comments INDICATED 06/29/18 06/29/18 06/29/18 Range/Units 09:15 07:34 04:35 WBC (4.8-10.8) x10^3/uL RBC (4.20-5.40) 10^6/uL Hgb (12.0-16.0) g/dL Hct (37.0-47.0) % MCV (81.0-99.0) fL MCH (27.0-31.0) pg MCHC (32.0-36.0) g/dL RDW (12.0-15.0) % Plt Count (130-450) 10^3/uL MPV (7.9-10.8) fL Neut # (Auto) (1.5-6.6) 10^3/uL Lymph # (Auto) (1.5-3.5) 10^3/uL [place] # (Auto) (0.0-1.0) 10^3/uL Eos # (Auto) (0.0-0.7) 10^3/uL Baso # (Auto) (0.0-0.1) 10^3/uL Absolute Nucleated RBC x10^3/uL Nucleated RBC % /100WBC Sodium 144 (135-145) mmol/L Potassium 4.0 (3.5-5.0) mmol/L Chloride 114 H (101-111) mmol/L Carbon Dioxide 21 (21-32) mmol/L Anion Gap 9.0 (6-13) BUN 48 H (6-20) mg/dL Creatinine 2.1 H (0.4-1.0) mg/dL Estimated GFR (MDRD) 22 L (>89) Glucose 138 H (70-100) mg/dL POC Whole Bld Glucose 171 H (70 - 100) mg/dL Calcium 7.9 L (8.5-10.3) mg/dL Total Bilirubin 0.6 (0.2-1.0) mg/dL AST 29 (10-42) IU/L ALT 24 (10-60) IU/L Alkaline Phosphatase 75 (42-121) IU/L Total Creatine Kinase 436 H (22-269) IU/L Total Protein 5.4 L (6.7-8.2) g/dL Albumin 2.6 L (3.2-5.5) g/dL Globulin 2.8 (2.1-4.2) g/dL Albumin/Globulin Ratio 0.9 L (1.0-2.2) Urine Color Urine Clarity (CLEAR) Urine pH (5.0-7.5) PH Ur Specific [place] (1.002-1.030) Urine Protein (NEGATIVE) mg/dL Urine Glucose (UA) (NEGATIVE) mg/dL Urine Ketones (NEGATIVE) mg/dL Urine Occult Blood (NEGATIVE) Urine Nitrite (NEGATIVE) Urine Bilirubin (NEGATIVE) Urine Urobilinogen (NORMAL) E.U./dL Ur Leukocyte Esterase (NEGATIVE) Urine RBC (0-5) /HPF Urine WBC (0-5) /HPF Urine WBC Clumps Ur Squamous Epith Cells (<= Few) Urine Bacteria (None Seen) /HPF Urine Culture Comments 06/29/18 06/28/18 06/28/18 Range/Units 04:35 20:28 17:01 WBC 14.3 H (4.8-10.8) x10^3/uL RBC 3.11 L (4.20-5.40) 10^6/uL Hgb 9.5 L (12.0-16.0) g/dL Hct 28.5 L (37.0-47.0) % MCV 91.6 (81.0-99.0) fL MCH 30.6 (27.0-31.0) pg MCHC 33.4 (32.0-36.0) g/dL RDW 13.5 (12.0-15.0) % Plt Count 150 (130-450) 10^3/uL MPV 9.5 (7.9-10.8) fL Neut # (Auto) 11.8 H (1.5-6.6) 10^3/uL Lymph # (Auto) 1.3 L (1.5-3.5) 10^3/uL [place] # (Auto) 0.9 (0.0-1.0) 10^3/uL Eos # (Auto) 0.2 (0.0-0.7) 10^3/uL Baso # (Auto) 0.1 (0.0-0.1) 10^3/uL Absolute Nucleated RBC 0.00 x10^3/uL Nucleated RBC % 0.0 /100WBC Sodium (135-145) mmol/L Potassium (3.5-5.0) mmol/L Chloride (101-111) mmol/L Carbon Dioxide (21-32) mmol/L Anion Gap (6-13) BUN (6-20) mg/dL Creatinine (0.4-1.0) mg/dL Estimated GFR (MDRD) (>89) Glucose (70-100) mg/dL POC Whole Bld Glucose 178 H 178 H (70 - 100) mg/dL Calcium (8.5-10.3) mg/dL Total Bilirubin (0.2-1.0) mg/dL AST (10-42) IU/L ALT (10-60) IU/L Alkaline Phosphatase (42-121) IU/L Total Creatine Kinase (22-269) IU/L Total Protein (6.7-8.2) g/dL Albumin (3.2-5.5) g/dL Globulin (2.1-4.2) g/dL Albumin/Globulin Ratio (1.0-2.2) Urine Color Urine Clarity (CLEAR) Urine pH (5.0-7.5) PH Ur Specific [place] (1.002-1.030) Urine Protein (NEGATIVE) mg/dL Urine Glucose (UA) (NEGATIVE) mg/dL Urine Ketones (NEGATIVE) mg/dL Urine Occult Blood (NEGATIVE) Urine Nitrite (NEGATIVE) Urine Bilirubin (NEGATIVE) Urine Urobilinogen (NORMAL) E.U./dL Ur Leukocyte Esterase (NEGATIVE) Urine RBC (0-5) /HPF Urine WBC (0-5) /HPF Urine WBC Clumps Ur Squamous Epith Cells (<= Few) Urine Bacteria (None Seen) /HPF Urine Culture Comments Assessment/Plan - Problem List (1) Hypoglycemia Impression: (1) Hypoglycemia Impression: 06/29 resolved. pt had N/V/D for couples of day, did not eat much, that is reason why she had hypoglycemia, per pt report. resume cardocontrol diet ACHS test for glucose hypoglycemia protocol (2) Rhabdomyolysis Conclusion/Plan: 06/29 today CK is down 436. continue gently IVF of NS (3) [id number]-hcefwne kidney injury Conclusion/Plan: 06/29 stable. pt report she had CKD since from 2018 (4) Hypothyroidism Conclusion/Plan: Continue synthroid at home dose. TSH is normal (5) Diabetes mellitus, type II Conclusion/Plan: 06/29 continue Gluctrol, start with slide scale, since pt has hx of DM, and glucose level is slight elevated. 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 Pat follows with wound care out patient. (9)UTI UA analysis reveal positive UTI. pt also had elevate WBC treat with Rocephin followup UA culture (10)weakness pt present generalized weakness consult with PT/OT
[2018-06-29] MEDS: cefTRIAXone 1 GM in SODIUM CHLORIDE 0.9% MINIBAG 100 ML IV SCH ×3 (17:07→21:24)
[2018-06-29] MEDS: ACETAMINOPHEN 325 MG TABLET PO PRN (17:12)
[2018-06-29] MEDS ORDERED: SODIUM CHLORIDE 0.9% 1,000 ML IV SCH (18:00)
[2018-06-29] MEDS ORDERED: SODIUM CHLORIDE FLUSH 0.9% 10 ML SYRINGE ONE (18:14)
[2018-06-29] MEDS: SODIUM CHLORIDE 0.9% 1,000 ML IV SCH (19:00)
--- NOTE | 2018-06-29 20:35 | ANESTHESIA PROCEDURE NOTE ---
Height and Weight: Height 5 ft Weight (kg) 106 kg Body Mass Index 45.6 Vital Signs: Temp Pulse Resp BP Pulse Ox 36.3 C L 65 22 152/72 H 97 06/29/18 16:00 06/29/18 16:00 06/29/18 16:00 06/29/18 16:00 06/29/18 16:00 Allergies allopurinol Allergy (Verified 06/27/18 22:04) Itching baclofen Allergy (Verified 06/27/18 22:03) Itching clindamycin Allergy (Verified 06/27/18 21:56) Itching codeine Allergy (Verified 06/27/18 21:57) Itching desipramine Allergy (Verified 06/27/18 21:58) Itching doxycycline Allergy (Verified 06/27/18 21:59) Itching Horse/Equine Containing Products Allergy (Verified 06/27/18 21:59) Itching hydrocodone Allergy (Verified 06/27/18 22:01) Itching lactose Allergy (Verified 06/27/18 22:00) Cramps NSAIDS (Non-Steroidal Anti-Inflamma Allergy (Verified 06/27/18 22:02) Itching tramadol Allergy (Verified 06/27/18 22:03) Itching egg Adverse Reaction (Intermediate, Verified 06/27/18 21:56) Respiratory Pt states she gets hives and breathing problems aspirin Adverse Reaction (Verified 06/27/18 21:56) Respiratory Beef Containing Products Adverse Reaction (Verified 06/27/18 22:04) Respiratory iodine Adverse Reaction (Verified 06/27/18 22:02) Respiratory latex Adverse Reaction (Verified 06/27/18 22:00) Respiratory shellfish derived Adverse Reaction (Verified 06/27/18 22:02) Respiratory Procedure Notes: Called to replace IV. #22G IV started to right AC x1 attempt. Saline lock placed and flushed with ease. Patient tolerated well.
[2018-06-30] MEDS: ACETAMINOPHEN 325 MG TABLET PO PRN ×2 (04:40→18:55)
[2018-06-30] MEDS: MIN OIL/DIMETHICON/COCONUT OIL 92 GM TUBE TOP PRN (04:40)
[2018-06-30] MEDS ORDERED: SENNA 8.6 MG TABLET PO PRN (05:00)
[2018-06-30 06:22] LABS: BASOPHILS # (AUTO) 0.1 10^3/uL (0.0-0.1); BASOPHILS % (AUTO) 0.7 %; EOSINOPHILS # (AUTO) 0.4 10^3/uL (0.0-0.7); EOSINOPHILS % (AUTO) 3.2 %; LYMPHOCYTES # (AUTO) 1.4 10^3/uL (1.5-3.5); LYMPHOCYTES % (AUTO) 11.6 %; MEAN CORPUSCULAR HGB CONC 32.5 g/dL (32.0-36.0); MEAN CORPUSCULAR VOLUME 92.2 fL (81.0-99.0); MEAN PLATELET VOLUME 9.6 fL (7.9-10.8); MONOCYTES # (AUTO) 0.8 10^3/uL (0.0-1.0); MONOCYTES % (AUTO) 6.4 %; NEUTROPHILS # (AUTO) 9.3 10^3/uL (1.5-6.6); NEUTROPHILS % (AUTO) 78.1 %; PLT - PLATELET COUNT 156 10^3/uL (130-450); RED BLOOD COUNT 3.01 10^6/uL (4.20-5.40); RED CELL DISTRIBUTION WIDTH 13.4 % (12.0-15.0); WHITE BLOOD COUNT 11.9 x10^3/uL (4.8-10.8)
[2018-06-30] MEDS: LEVOTHYROXINE 125 MCG TABLET PO SCH (06:23)
[2018-06-30 06:36] LABS: ALBUMIN 2.4 g/dL (3.2-5.5); ALBUMIN/GLOBULIN RATIO 0.8 (1.0-2.2); BILIRUBIN,TOTAL 0.7 mg/dL (0.2-1.0); CALCIUM 7.8 mg/dL (8.5-10.3); CREATININE 2.2 mg/dL (0.4-1.0); TOTAL PROTEIN 5.5 g/dL (6.7-8.2)
[2018-06-30] MEDS: CARVEDILOL 12.5 MG TABLET PO SCH ×2 (08:56→20:47)
[2018-06-30] MEDS: HEPARIN 5,000 UNIT/ML VIAL SUBQ SCH ×2 (08:56→20:49)
[2018-06-30] MEDS: NYSTATIN CREAM 15 GM TUBE TOP SCH ×2 (08:57→21:07)
[2018-06-30] MEDS: DOCUSATE SODIUM 250 MG CAPSULE PO SCH (08:57)
[2018-06-30] MEDS: FAMOTIDINE 20 MG TABLET PO SCH (08:57)
[2018-06-30] MEDS: POTASSIUM CHLORIDE 10 MEQ CAPSULE PO SCH (08:57)
[2018-06-30] MEDS: glipiZIDE 5 MG TABLET PO SCH ×2 (08:57→20:48)
[2018-06-30] MEDS: SENNA 8.6 MG TABLET PO SCH (08:57)
[2018-06-30] MEDS: INSULIN ASPART 300 UNIT/3 ML PEN SUBQ SCH ×4 (08:57→21:06)
[2018-06-30] MEDS: SODIUM CHLORIDE FLUSH 0.9% 10 ML SYRINGE IVP SCH ×2 (08:58→18:59)
[2018-06-30] MEDS: POLYETHYLENE GLYCOL 3350 17 GM PACKET PO SCH (08:58)
[2018-06-30] MEDS: SODIUM CHLORIDE 0.9% 1,000 ML IV SCH (11:17)
[2018-06-30] MEDS: ALBUTEROL NEB 2.5 MG/3 ML INH PRN (19:57)
[2018-06-30] MEDS: cefTRIAXone 1 GM in SODIUM CHLORIDE 0.9% MINIBAG 100 ML IV SCH (20:47)
[2018-07-01] MEDS: SODIUM CHLORIDE FLUSH 0.9% 10 ML SYRINGE IVP SCH ×3 (02:14→16:55)
[2018-07-01] MEDS ORDERED: MAGNESIUM HYDROXIDE 2,400 MG/30 ML UDC PO ONE (06:00)
[2018-07-01] MEDS: LEVOTHYROXINE 125 MCG TABLET PO SCH (06:28)
[2018-07-01 06:35] LABS: BASOPHILS # (AUTO) 0.1 10^3/uL (0.0-0.1); BASOPHILS % (AUTO) 0.9 %; EOSINOPHILS # (AUTO) 0.5 10^3/uL (0.0-0.7); EOSINOPHILS % (AUTO) 5.1 %; HGB - HEMOGLOBIN 9.3 g/dL (12.0-16.0); LYMPHOCYTES # (AUTO) 1.5 10^3/uL (1.5-3.5); LYMPHOCYTES % (AUTO) 16.4 %; MEAN CORPUSCULAR HEMOGLOBIN 30.8 pg (27.0-31.0); MEAN CORPUSCULAR HGB CONC 33.1 g/dL (32.0-36.0); MEAN CORPUSCULAR VOLUME 93.2 fL (81.0-99.0); MEAN PLATELET VOLUME 9.1 fL (7.9-10.8); MONOCYTES # (AUTO) 0.7 10^3/uL (0.0-1.0); MONOCYTES % (AUTO) 7.5 %; NEUTROPHILS # (AUTO) 6.3 10^3/uL (1.5-6.6); NEUTROPHILS % (AUTO) 70.1 %; PLT - PLATELET COUNT 177 10^3/uL (130-450); RED BLOOD COUNT 3.03 10^6/uL (4.20-5.40); RED CELL DISTRIBUTION WIDTH 13.9 % (12.0-15.0)
[2018-07-01 06:46] LABS: ALBUMIN 2.4 g/dL (3.2-5.5); ALBUMIN/GLOBULIN RATIO 0.7 (1.0-2.2); BILIRUBIN,TOTAL 0.5 mg/dL (0.2-1.0); CALCIUM 7.9 mg/dL (8.5-10.3); TOTAL PROTEIN 5.8 g/dL (6.7-8.2)
[2018-07-01] MEDS: ALBUTEROL NEB 2.5 MG/3 ML INH PRN (08:20)
--- NOTE | 2018-07-01 08:40 | PROVIDER PROGRESS NOTE ---
Subjective - Prog Note Date Prog Note Date: 06/30/18 Prog Note Time: 10:00 - Subjective Pt reports feeling: Improved Subjective: Jada (Sandee) is concerned about upcoming discharge plans. Agreeable to going to SNF for rehab if that is the recommendation. Current Medications - Current Medications Current Medications: Active Medications Acetaminophen (Tylenol) 650 mg PO Q4HR PRN PRN Reason: Pain 1 to 4 Last Admin: 06/30/18 18:55 Dose: 650 mg Albuterol () 2.5 mg INH RTQ4H PRN PRN Reason: Wheezing Last Admin: 07/01/18 08:20 Dose: 2.5 mg Carvedilol (Coreg) 37.5 mg PO BID [facility] Last Admin: 06/30/18 20:47 Dose: 37.5 mg Docusate Sodium (Colace 250mg Capsule) 250 - 500 mg PO DAILY [facility] Last Admin: 06/30/18 08:57 Dose: 250 mg Famotidine (Pepcid) 20 mg PO DAILY [facility] Last Admin: 06/30/18 08:57 Dose: 20 mg Glipizide (Glucotrol) 2.5 mg PO BID [facility] Last Admin: 06/30/18 20:48 Dose: 2.5 mg Heparin Sodium (Porcine) () 5,000 unit SUBQ BID [facility] Last Admin: 06/30/18 20:49 Dose: 5,000 unit Hydralazine HCl (Apresoline Inj) 10 mg IVP QID PRN PRN Reason: Hypertensive Emergency Ceftriaxone Sodium 1 gm/ (Sodium Chloride) 100 mls @ 200 mls/hr IV Q24H [facility] Last Infusion: 06/30/18 21:20 Dose: Infused Insulin Aspart (Novolog) 1 - 5 unit SUBQ 0800,1200,1700,2100 [facility]; Protocol Last Admin: 06/30/18 21:06 Dose: 1 unit Levothyroxine Sodium (Synthroid) 125 mcg PO QDAC [facility] Last Admin: 07/01/18 06:28 Dose: 125 mcg Mineral Oil (Cavilon) 1 applic TOP PRN PRN PRN Reason: Skin Care Last Admin: 06/30/18 04:40 Dose: 1 applic Nystatin (Mycostatin Cream) 1 applic TOP BID [facility] Last Admin: 06/30/18 21:07 Dose: 1 applic Ondansetron HCl (Zofran Inj) 4 mg IVP Q6HR PRN PRN Reason: Nausea / Vomiting Polyethylene Glycol (Miralax) 17 gm PO DAILY [facility] Last Admin: 06/30/18 08:58 Dose: 17 gm Potassium Chloride (Micro-K) 20 meq PO DAILY [facility] Last Admin: 06/30/18 08:57 Dose: 20 meq Senna (Senokot) 8.6 - 17.2 mg PO DAILY [facility] Last Admin: 06/30/18 08:57 Dose: 8.6 mg Senna (Senokot) 17.2 - 25.8 mg PO DAILY PRN PRN Reason: Bowel Protocol Sodium Chloride (Normal Saline Flush 0.9%) 10 ml IVP PRN PRN PRN Reason: NEEDED PER PROVIDER ORDERS Sodium Chloride (Normal Saline Flush 0.9%) 10 ml IVP 0100,0900,1700 [facility] Last Admin: 07/01/18 02:14 Dose: Not Given Carvedilol 25 mg PO BID 06/28/18 Diphenoxylate HCl/Atropine [Diphenoxylate-Atrop 2.5-0.025] 1 tab PO QID PRN 06/28/18 Furosemide 40 mg PO TID 06/28/18 Levothyroxine Sodium 125 mcg PO QDAC 06/28/18 Potassium Chloride 20 meq PO DAILY 06/28/18 glipiZIDE [Glipizide] 2.5 mg PO BID 06/28/18 Objective - Vital Signs/Intake & Output Reviewed Vital Signs: Yes Vital Signs: Vital Signs x48h Temp Pulse Resp BP Pulse Ox 07/01/18 07:46 36.5 C 72 16 173/61 H 95 Intake & Output: Intake & Output 06/28/18 06/29/18 06/30/18 07/01/18 23:59 23:59 23:59 23:59 Intake Total 3616.333 2150 716 1350 Output Total 8625 529 2557 900 Balance 2566.333 1450 -1234 450 - Objective General Appearance: positive: No acute distress, Alert, Anxious Eyes Bilateral: positive: PERRL Eyes: OU Conjunctivae pale ENT: positive: Pharynx nml, Dry mucous membranes Neck: positive: Thyroid nml, No JVD, Trachea midline, Stiff neck Respiratory: positive: Chest non-tender, Rhonchi Cardiovascular: positive: Irregularly irregular, Tachycardia, Systolic murmur, Gallop/S3 Peripheral Pulses: 1+ Radial (R), 1+ Radial (L) Abdomen: positive: Non-tender, Nml bowel sounds, Other (obese, rounded, soft) Back: positive: Nml inspection Skin: positive: Color nml, No rash, Warm, Dry Extremities: positive: Non-tender, Pedal edema, Joint swelling Neurologic/Psychiatric: positive: Oriented x3, CN's nml (2-12), Motor nml, Sensation nml, Weakness, Depressed mood/affect Reflexes: Bicep (R): 2+, Bicep (L): 2+ - Lab Results Fish Bones: 07/01/18 05:38 07/01/18 05:38 Other Labs: Lab Results x24hrs 07/01/18 07/01/18 07/01/18 Range/Units 07:51 05:38 05:38 WBC 9.0 (4.8-10.8) x10^3/uL RBC 3.03 L (4.20-5.40) 10^6/uL Hgb 9.3 L (12.0-16.0) g/dL Hct 28.2 L (37.0-47.0) % MCV 93.2 (81.0-99.0) fL MCH 30.8 (27.0-31.0) pg MCHC 33.1 (32.0-36.0) g/dL RDW 13.9 (12.0-15.0) % Plt Count 177 (130-450) 10^3/uL MPV 9.1 (7.9-10.8) fL Neut # (Auto) 6.3 (1.5-6.6) 10^3/uL Lymph # (Auto) 1.5 (1.5-3.5) 10^3/uL [place] # (Auto) 0.7 (0.0-1.0) 10^3/uL Eos # (Auto) 0.5 (0.0-0.7) 10^3/uL Baso # (Auto) 0.1 (0.0-0.1) 10^3/uL Absolute Nucleated RBC 0.01 x10^3/uL Nucleated RBC % 0.1 /100WBC Sodium 142 (135-145) mmol/L Potassium 4.7 (3.5-5.0) mmol/L Chloride 116 H (101-111) mmol/L Carbon Dioxide 21 (21-32) mmol/L Anion Gap 5.0 L (6-13) BUN 53 H (6-20) mg/dL Creatinine 2.0 H (0.4-1.0) mg/dL Estimated GFR (MDRD) 24 L (>89) Glucose 115 H (70-100) mg/dL POC Whole Bld Glucose 118 H (70 - 100) mg/dL Calcium 7.9 L (8.5-10.3) mg/dL Total Bilirubin 0.5 (0.2-1.0) mg/dL AST 17 (10-42) IU/L ALT 26 (10-60) IU/L Alkaline Phosphatase 68 (42-121) IU/L Total Creatine Kinase (22-269) IU/L Total Protein 5.8 L (6.7-8.2) g/dL Albumin 2.4 L (3.2-5.5) g/dL Globulin 3.4 (2.1-4.2) g/dL Albumin/Globulin Ratio 0.7 L (1.0-2.2) 06/30/18 06/30/18 06/30/18 Range/Units 20:19 17:21 11:45 WBC (4.8-10.8) x10^3/uL RBC (4.20-5.40) 10^6/uL Hgb (12.0-16.0) g/dL Hct (37.0-47.0) % MCV (81.0-99.0) fL MCH (27.0-31.0) pg MCHC (32.0-36.0) g/dL RDW (12.0-15.0) % Plt Count (130-450) 10^3/uL MPV (7.9-10.8) fL Neut # (Auto) (1.5-6.6) 10^3/uL Lymph # (Auto) (1.5-3.5) 10^3/uL [place] # (Auto) (0.0-1.0) 10^3/uL Eos # (Auto) (0.0-0.7) 10^3/uL Baso # (Auto) (0.0-0.1) 10^3/uL Absolute Nucleated RBC x10^3/uL Nucleated RBC % /100WBC Sodium (135-145) mmol/L Potassium (3.5-5.0) mmol/L Chloride (101-111) mmol/L Carbon Dioxide (21-32) mmol/L Anion Gap (6-13) BUN (6-20) mg/dL Creatinine (0.4-1.0) mg/dL Estimated GFR (MDRD) (>89) Glucose (70-100) mg/dL POC Whole Bld Glucose 171 H 189 H 149 H (70 - 100) mg/dL Calcium (8.5-10.3) mg/dL Total Bilirubin (0.2-1.0) mg/dL AST (10-42) IU/L ALT (10-60) IU/L Alkaline Phosphatase (42-121) IU/L Total Creatine Kinase (22-269) IU/L Total Protein (6.7-8.2) g/dL Albumin (3.2-5.5) g/dL Globulin (2.1-4.2) g/dL Albumin/Globulin Ratio (1.0-2.2) 06/30/18 Range/Units 09:50 WBC (4.8-10.8) x10^3/uL RBC (4.20-5.40) 10^6/uL Hgb (12.0-16.0) g/dL Hct (37.0-47.0) % MCV (81.0-99.0) fL MCH (27.0-31.0) pg MCHC (32.0-36.0) g/dL RDW (12.0-15.0) % Plt Count (130-450) 10^3/uL MPV (7.9-10.8) fL Neut # (Auto) (1.5-6.6) 10^3/uL Lymph # (Auto) (1.5-3.5) 10^3/uL [place] # (Auto) (0.0-1.0) 10^3/uL Eos # (Auto) (0.0-0.7) 10^3/uL Baso # (Auto) (0.0-0.1) 10^3/uL Absolute Nucleated RBC x10^3/uL Nucleated RBC % /100WBC Sodium (135-145) mmol/L Potassium (3.5-5.0) mmol/L Chloride (101-111) mmol/L Carbon Dioxide (21-32) mmol/L Anion Gap (6-13) BUN (6-20) mg/dL Creatinine (0.4-1.0) mg/dL Estimated GFR (MDRD) (>89) Glucose (70-100) mg/dL POC Whole Bld Glucose (70 - 100) mg/dL Calcium (8.5-10.3) mg/dL Total Bilirubin (0.2-1.0) mg/dL AST (10-42) IU/L ALT (10-60) IU/L Alkaline Phosphatase (42-121) IU/L Total Creatine Kinase 199 (22-269) IU/L Total Protein (6.7-8.2) g/dL Albumin (3.2-5.5) g/dL Globulin (2.1-4.2) g/dL Albumin/Globulin Ratio (1.0-2.2) ABX Reporting Has patient been on IV antibiotics over the past 48 hours?: Yes Sepsis Event Note (H) - Evaluation Current Stage of Sepsis: Ruled out Assessment/Plan - Problem List (1) Afgam-ak-thmnsik kidney injury Impression: - Known to have stage 4 CKD, GFR is normally 20 - Likely worsened this admission due to rhabdo, acute infection - Creatinine ~2 now Plan: Stop fluids, resume diuretics in the AM (2) Rhabdomyolysis Impression: - Resolved, last CK was 199 - Renal function back to baseline Plan: D/C fluids today, resume diuretics tomorrow Qualifiers: Rhabdomyolysis type: traumatic Encounter type: initial encounter Qualified Code(s): T79.6XXA - Traumatic ischemia of muscle, initial encounter (3) Diabetes mellitus, type II Impression: - Patient is prescribed glypizide at home - Blood sugars have been 149-177 for the past 24 hours, no hypoglycemia Plan: Continue SSI, ACHS blood sugars, carb controlled diet Qualifiers: Diabetes mellitus 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 (4) Hypoglycemia Impression: - S/p N/V/D for a few days leading up to this admission - Had a very poor appetite,that has improved today - Continue carb control diet Plan: ACHS, SSI and low dose glypizide, hypoglycemia protocol (5) Hypothyroidism Impression: - TSH was 1.62 on 06/28/2018 - Continue synthroid at home dose Qualifiers: Hypothyroidism type: acquired Qualified Code(s): E03.9 - Hypothyroidism, unspecified (6) Asthma Impression: - Patient wishes to have her rescue inhaler - Scheduled nebs, see MAR Plan: Continue nebs per respiratory Qualifiers: Asthma severity: moderate Asthma persistence: persistent Asthma complication type: uncomplicated Qualified Code(s): J45.40 - Moderate persistent asthma, uncomplicated
[2018-07-01] MEDS ORDERED: FUROSEMIDE 40 MG/4 ML VIAL IVP SCH (08:52)
[2018-07-01] MEDS: INSULIN ASPART 300 UNIT/3 ML PEN SUBQ SCH ×4 (09:18→20:30)
[2018-07-01] MEDS: glipiZIDE 5 MG TABLET PO SCH ×2 (10:14→20:13)
[2018-07-01] MEDS: POTASSIUM CHLORIDE 10 MEQ CAPSULE PO SCH (10:14)
[2018-07-01] MEDS: HEPARIN 5,000 UNIT/ML VIAL SUBQ SCH ×2 (10:15→20:16)
[2018-07-01] MEDS: SULFAMETH/TRIMETH DS 800/160 MG TABLET PO SCH (10:15)
[2018-07-01] MEDS: CARVEDILOL 12.5 MG TABLET PO SCH ×2 (10:15→20:13)
[2018-07-01] MEDS: FAMOTIDINE 20 MG TABLET PO SCH (10:16)
[2018-07-01] MEDS: NYSTATIN CREAM 15 GM TUBE TOP SCH ×2 (10:16→20:31)
[2018-07-01] MEDS: SODIUM CHLORIDE FLUSH 0.9% 10 ML SYRINGE IVP PRN (10:16)
[2018-07-01] MEDS: MIN OIL/DIMETHICON/COCONUT OIL 92 GM TUBE TOP PRN (10:16)
[2018-07-01] MEDS: ACETAMINOPHEN 325 MG TABLET PO PRN (10:17)
[2018-07-01] MEDS: POLYETHYLENE GLYCOL 3350 17 GM PACKET PO SCH (10:30)
[2018-07-01] MEDS: DOCUSATE SODIUM 250 MG CAPSULE PO SCH (10:30)
[2018-07-01] MEDS: SENNA 8.6 MG TABLET PO SCH (10:31)
--- NOTE | 2018-07-01 16:20 | PROVIDER PROGRESS NOTE ---
Subjective - Prog Note Date Prog Note Date: 07/01/18 Prog Note Time: 16:19 - Subjective Pt reports feeling: Improved Subjective: Sandee is overall "wiped out" and has poor activity tolerance and audible wheezing as she is speaking. She denies chest pain, headaches, new dizziness, nausea, vomiting, diarrhea, a new rash, or increased productive cough. Current Medications - Current Medications Current Medications: Active Medications: Acetaminophen (Tylenol) 650 mg PO Q4HR PRN Albuterol () 2.5 mg INH RTQ4H PRN Carvedilol (Coreg) 37.5 mg PO BID [facility] Docusate Sodium (Colace 250mg Capsule) 250 - 500 mg PO DAILY [facility] Famotidine (Pepcid) 20 mg PO DAILY [facility] Glipizide (Glucotrol) 2.5 mg PO BID [facility] Heparin Sodium (Porcine)5,000 unit SUBQ BID [facility] Hydralazine HCl (Apresoline Inj) 10 mg IVP QID PRN Insulin Aspart (Novolog) 1 - 5 unit SUBQ 0800,1200,1700,2100 [facility]; Protocol Levothyroxine Sodium (Synthroid) 125 mcg PO QDAC [facility] Mineral Oil (Cavilon) 1 applic TOP PRN PRN Nystatin (Mycostatin Cream) 1 applic TOP BID [facility] Ondansetron HCl (Zofran Inj) 4 mg IVP Q6HR PRN Polyethylene Glycol (Miralax) 17 gm PO DAILY [facility] Potassium Chloride (Micro-K) 20 meq PO DAILY [facility] Senna (Senokot) 8.6 - 17.2 mg PO DAILY [facility] Senna (Senokot) 17.2 - 25.8 mg PO DAILY PRN Trimethoprim/Sulfamethoxazole (Bactrim Ds 800/160) 1 tab PO DAILY [facility] HOME meds: Carvedilol 25 mg PO BID 06/28/18 Diphenoxylate HCl/Atropine [Diphenoxylate-Atrop 2.5-0.025] 1 tab PO QID PRN 06/28/18 Furosemide 40 mg PO TID 06/28/18 Levothyroxine Sodium 125 mcg PO QDAC 06/28/18 Potassium Chloride 20 meq PO DAILY 06/28/18 glipiZIDE [Glipizide] 2.5 mg PO BID 06/28/18 Objective - Vital Signs/Intake & Output Reviewed Vital Signs: Yes Vital Signs: Vital Signs x48h Temp Pulse Pulse Resp BP Pulse Ox 07/01/18 15:59 36.6 C 66 18 130/95 H 95 07/01/18 08:20 65 16 Intake & Output: Intake & Output 06/28/18 06/29/18 06/30/18 07/01/18 23:59 23:59 23:59 23:59 Intake Total 3616.333 2150 716 2550 Output Total 2908 876 7509 1350 Balance 2566.333 1450 -1234 1200 - Objective General Appearance: positive: No acute distress, Alert Eyes Bilateral: positive: PERRL Eyes: OU Conjunctivae pale ENT: positive: ENT inspection nml, Dry mucous membranes Neck: positive: Thyroid nml, No JVD, Trachea midline Respiratory: positive: Chest non-tender, Rhonchi Cardiovascular: positive: Irregularly irregular, Systolic murmur, Decreased pulse(s) Peripheral Pulses: 1+ Radial (R), 1+ Radial (L) Abdomen: positive: Non-tender, Nml bowel sounds, Other (rounded, obese, soft) Back: positive: Nml inspection Skin: positive: No rash, Warm, Dry, Pallor Extremities: positive: Non-tender, Pedal edema, Joint swelling, Other (chronic bobby status wound- BLEs) Neurologic/Psychiatric: positive: Oriented x3, CN's nml (2-12), Motor nml, Weakness, Depressed mood/affect Reflexes: Bicep (R): 3+, Bicep (L): 3+ - Lab Results Fish Bones: 07/01/18 05:38 07/01/18 05:38 Other Labs: Lab Results x24hrs 07/01/18 07/01/18 07/01/18 Range/Units 11:48 07:51 05:38 WBC (4.8-10.8) x10^3/uL RBC (4.20-5.40) 10^6/uL Hgb (12.0-16.0) g/dL Hct (37.0-47.0) % MCV (81.0-99.0) fL MCH (27.0-31.0) pg MCHC (32.0-36.0) g/dL RDW (12.0-15.0) % Plt Count (130-450) 10^3/uL MPV (7.9-10.8) fL Neut # (Auto) (1.5-6.6) 10^3/uL Lymph # (Auto) (1.5-3.5) 10^3/uL Potter # (Auto) (0.0-1.0) 10^3/uL Eos # (Auto) (0.0-0.7) 10^3/uL Baso # (Auto) (0.0-0.1) 10^3/uL Absolute Nucleated RBC x10^3/uL Nucleated RBC % /100WBC Sodium (135-145) mmol/L Potassium (3.5-5.0) mmol/L Chloride (101-111) mmol/L Carbon Dioxide (21-32) mmol/L Anion Gap (6-13) BUN (6-20) mg/dL Creatinine (0.4-1.0) mg/dL Estimated GFR (MDRD) (>89) Glucose (70-100) mg/dL POC Whole Bld Glucose 162 H 118 H (70 - 100) mg/dL Calcium (8.5-10.3) mg/dL Total Bilirubin (0.2-1.0) mg/dL AST (10-42) IU/L ALT (10-60) IU/L Alkaline Phosphatase (42-121) IU/L Total Creatine Kinase 120 (22-269) IU/L Total Protein (6.7-8.2) g/dL Albumin (3.2-5.5) g/dL Globulin (2.1-4.2) g/dL Albumin/Globulin Ratio (1.0-2.2) 07/01/18 07/01/18 06/30/18 Range/Units 05:38 05:38 20:19 WBC 9.0 (4.8-10.8) x10^3/uL RBC 3.03 L (4.20-5.40) 10^6/uL Hgb 9.3 L (12.0-16.0) g/dL Hct 28.2 L (37.0-47.0) % MCV 93.2 (81.0-99.0) fL MCH 30.8 (27.0-31.0) pg MCHC 33.1 (32.0-36.0) g/dL RDW 13.9 (12.0-15.0) % Plt Count 177 (130-450) 10^3/uL MPV 9.1 (7.9-10.8) fL Neut # (Auto) 6.3 (1.5-6.6) 10^3/uL Lymph # (Auto) 1.5 (1.5-3.5) 10^3/uL Potter # (Auto) 0.7 (0.0-1.0) 10^3/uL Eos # (Auto) 0.5 (0.0-0.7) 10^3/uL Baso # (Auto) 0.1 (0.0-0.1) 10^3/uL Absolute Nucleated RBC 0.01 x10^3/uL Nucleated RBC % 0.1 /100WBC Sodium 142 (135-145) mmol/L Potassium 4.7 (3.5-5.0) mmol/L Chloride 116 H (101-111) mmol/L Carbon Dioxide 21 (21-32) mmol/L Anion Gap 5.0 L (6-13) BUN 53 H (6-20) mg/dL Creatinine 2.0 H (0.4-1.0) mg/dL Estimated GFR (MDRD) 24 L (>89) Glucose 115 H (70-100) mg/dL POC Whole Bld Glucose 171 H (70 - 100) mg/dL Calcium 7.9 L (8.5-10.3) mg/dL Total Bilirubin 0.5 (0.2-1.0) mg/dL AST 17 (10-42) IU/L ALT 26 (10-60) IU/L Alkaline Phosphatase 68 (42-121) IU/L Total Creatine Kinase (22-269) IU/L Total Protein 5.8 L (6.7-8.2) g/dL Albumin 2.4 L (3.2-5.5) g/dL Globulin 3.4 (2.1-4.2) g/dL Albumin/Globulin Ratio 0.7 L (1.0-2.2) 06/30/18 Range/Units 17:21 WBC (4.8-10.8) x10^3/uL RBC (4.20-5.40) 10^6/uL Hgb (12.0-16.0) g/dL Hct (37.0-47.0) % MCV (81.0-99.0) fL MCH (27.0-31.0) pg MCHC (32.0-36.0) g/dL RDW (12.0-15.0) % Plt Count (130-450) 10^3/uL MPV (7.9-10.8) fL Neut # (Auto) (1.5-6.6) 10^3/uL Lymph # (Auto) (1.5-3.5) 10^3/uL Potter # (Auto) (0.0-1.0) 10^3/uL Eos # (Auto) (0.0-0.7) 10^3/uL Baso # (Auto) (0.0-0.1) 10^3/uL Absolute Nucleated RBC x10^3/uL Nucleated RBC % /100WBC Sodium (135-145) mmol/L Potassium (3.5-5.0) mmol/L Chloride (101-111) mmol/L Carbon Dioxide (21-32) mmol/L Anion Gap (6-13) BUN (6-20) mg/dL Creatinine (0.4-1.0) mg/dL Estimated GFR (MDRD) (>89) Glucose (70-100) mg/dL POC Whole Bld Glucose 189 H (70 - 100) mg/dL Calcium (8.5-10.3) mg/dL Total Bilirubin (0.2-1.0) mg/dL AST (10-42) IU/L ALT (10-60) IU/L Alkaline Phosphatase (42-121) IU/L Total Creatine Kinase (22-269) IU/L Total Protein (6.7-8.2) g/dL Albumin (3.2-5.5) g/dL Globulin (2.1-4.2) g/dL Albumin/Globulin Ratio (1.0-2.2) ABX Reporting Has patient been on IV antibiotics over the past 48 hours?: Yes Sepsis Event Note (H) - Evaluation Current Stage of Sepsis: Ruled out Assessment/Plan - Problem List (1) E. 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 Impression: - Patient has an established Banquet Kitchen Supervisor, but no recent echo on file with us - Patient displays evidence of combined failure with having a huge abdominal girth, chronic BLE edema, poor activity tolerance, orthopnea, and poor perfusion based on skin Plan: Continue BB, diuretics, attempt a limited Echo in the AM to evaluate most recent EF (3) [id number] kidney injury Impression: - Known to have stage 4 CKD, GFR is normally 20 - Likely worsened this admission due to rhabdo, acute infection - Creatinine now 2.0 - Urine output has been ~1200 mL on day shift and patient is finding the Purewick helpful Plan: IV lasix x1 today, start Spironolactone, stop potassium daily (4) Rhabdomyolysis Impression: - Resolved, last CK was 200 - Renal function back to baseline Plan: Diuretics were resumed today Qualifiers: Rhabdomyolysis type: traumatic Encounter type: initial encounter Qualified Code(s): T79.6XXA - Traumatic ischemia of muscle, initial encounter (5) Diabetes mellitus, type II Impression: - Patient is prescribed glypizide at home - Blood sugars have been 131-181 for the past 24 hours, no hypoglycemia - Patient complains of too little vegetables since her admission Plan: Continue SSI, ACHS blood sugars, carb controlled diet Qualifiers: Diabetes mellitus intermediate frame tender insulin use: with intermediate frame tender use (6) Hypoglycemia Impression: - S/p N/V/D for a few days leading up to this admission - Had a very poor appetite,that has improved each day - Continue carb control diet Plan: ACHS, SSI and low dose glypizide, hypoglycemia protocol (7) Hypothyroidism Impression: - TSH was 1.62 on 06/28/2018 - Continue synthroid at home dose of 125 mcg daily Qualifiers: Hypothyroidism type: acquired Qualified Code(s): E03.9 - Hypothyroidism, unspecified (8) Asthma Impression: - Patient wishes to have her rescue inhaler - Scheduled nebs, see MAR - Incentive spirometer added Plan: Continue nebs per respiratory Qualifiers: Asthma severity: moderate Asthma persistence: persistent Asthma complication type: uncomplicated Qualified Code(s): J45.40 - Moderate persistent asthma, uncomplicated (9) Venous stasis dermatitis of both lower extremities Impression: - see chart for photos - continues to have non-healing ulcers to BLEs - Wound care provider has evaluated Plan: Continue diuretics, continue wound cares
[2018-07-01] MEDS: SPIRONOLACTONE 25 MG TABLET PO SCH (19:19)
[2018-07-02] MEDS: SODIUM CHLORIDE FLUSH 0.9% 10 ML SYRINGE IVP SCH ×3 (01:36→17:05)
[2018-07-02 05:48] LABS: BASOPHILS # (AUTO) 0.1 10^3/uL (0.0-0.1); BASOPHILS % (AUTO) 1.3 %; EOSINOPHILS # (AUTO) 0.4 10^3/uL (0.0-0.7); EOSINOPHILS % (AUTO) 4.6 %; HGB - HEMOGLOBIN 9.8 g/dL (12.0-16.0); LYMPHOCYTES # (AUTO) 1.2 10^3/uL (1.5-3.5); LYMPHOCYTES % (AUTO) 14.4 %; MEAN CORPUSCULAR HEMOGLOBIN 30.7 pg (27.0-31.0); MEAN CORPUSCULAR HGB CONC 32.1 g/dL (32.0-36.0); MEAN CORPUSCULAR VOLUME 95.5 fL (81.0-99.0); MEAN PLATELET VOLUME 8.9 fL (7.9-10.8); MONOCYTES # (AUTO) 0.7 10^3/uL (0.0-1.0); MONOCYTES % (AUTO) 8.7 %; PLT - PLATELET COUNT 207 10^3/uL (130-450); RED BLOOD COUNT 3.19 10^6/uL (4.20-5.40); WHITE BLOOD COUNT 8.5 x10^3/uL (4.8-10.8)
[2018-07-02 06:10] LABS: ALBUMIN 2.5 g/dL (3.2-5.5); ALBUMIN/GLOBULIN RATIO 0.7 (1.0-2.2); BILIRUBIN,TOTAL 0.5 mg/dL (0.2-1.0); CALCIUM 8.3 mg/dL (8.5-10.3); CREATININE 2.1 mg/dL (0.4-1.0); TOTAL PROTEIN 5.9 g/dL (6.7-8.2)
[2018-07-02] MEDS: LEVOTHYROXINE 125 MCG TABLET PO SCH (06:37)
[2018-07-02] MEDS: ALBUTEROL NEB 2.5 MG/3 ML INH PRN (07:39)
[2018-07-02] MEDS: INSULIN ASPART 300 UNIT/3 ML PEN SUBQ SCH ×4 (08:40→21:17)
[2018-07-02] MEDS: SULFAMETH/TRIMETH DS 800/160 MG TABLET PO SCH (09:10)
[2018-07-02] MEDS: CARVEDILOL 12.5 MG TABLET PO SCH ×2 (09:10→21:16)
[2018-07-02] MEDS: FAMOTIDINE 20 MG TABLET PO SCH (09:10)
[2018-07-02] MEDS: SENNA 8.6 MG TABLET PO SCH (09:11)
[2018-07-02] MEDS: DOCUSATE SODIUM 250 MG CAPSULE PO SCH (09:11)
[2018-07-02] MEDS: FUROSEMIDE 40 MG/4 ML VIAL IVP SCH ×2 (09:11→14:10)
[2018-07-02] MEDS: HEPARIN 5,000 UNIT/ML VIAL SUBQ SCH ×2 (09:11→21:17)
[2018-07-02] MEDS: glipiZIDE 5 MG TABLET PO SCH (09:11)
[2018-07-02] MEDS: POLYETHYLENE GLYCOL 3350 17 GM PACKET PO SCH (09:11)
[2018-07-02] MEDS: SPIRONOLACTONE 25 MG TABLET PO SCH ×2 (09:11→17:03)
[2018-07-02] MEDS: SODIUM CHLORIDE FLUSH 0.9% 10 ML SYRINGE IVP PRN ×2 (09:12→14:10)
[2018-07-02] MEDS: NYSTATIN CREAM 15 GM TUBE TOP SCH ×2 (09:12→21:19)
[2018-07-02] MEDS: MIN OIL/DIMETHICON/COCONUT OIL 92 GM TUBE TOP PRN (09:12)
--- NOTE | 2018-07-02 13:32 | PROVIDER PROGRESS NOTE ---
Subjective - Prog Note Date Prog Note Date: 07/02/18 Prog Note Time: 10:00 - Subjective Pt reports feeling: No change Subjective: Sandee complains of her declining health and worries about her friend Kavitha. She states that her anxiety is getting out of hand, especially at night. She denies chest pain, chest pressure, nausea, vomiting, diarrhea, a new rash, or a productive cough. She is now wearing oxygen, worse that yesterday. She refuses an echocardiogram as this is uncomfortable for her to lie in bed and hold her breath at times during the test, even when told of the benefit with seeing how her heart is functioning. Current Medications - Current Medications Current Medications: Active Medications: Acetaminophen (Tylenol) 650 mg PO Q4HR PRN Albuterol 2.5 mg INH RTQ4H PRN Carvedilol (Coreg) 37.5 mg PO BID [facility] Docusate Sodium (Colace 250mg Capsule) 250 - 500 mg PO DAILY [facility] Famotidine (Pepcid) 20 mg PO DAILY [facility] Furosemide (Lasix Inj 40 Mg Vial) 40 mg IVP BIDDIURETIC [facility] Heparin Sodium (Porcine) 5,000 unit SUBQ BID [facility] Hydralazine HCl (Apresoline Inj) 10 mg IVP QID PRN Insulin Aspart (Novolog) 1 - 5 unit SUBQ 0800,1200,1700,2100 [facility]; Protocol Levothyroxine Sodium (Synthroid) 125 mcg PO QDAC [facility] Mineral Oil (Cavilon) 1 applic TOP PRN PRN Nystatin (Mycostatin Cream) 1 applic TOP BID [facility] Ondansetron HCl (Zofran Inj) 4 mg IVP Q6HR PRN Polyethylene Glycol (Miralax) 17 gm PO DAILY [facility] Senna (Senokot) 8.6 - 17.2 mg PO DAILY [facility] Senna (Senokot) 17.2 - 25.8 mg PO DAILY PRN Spironolactone (Aldactone) 25 mg PO BIDWM [facility] Trimethoprim/Sulfamethoxazole (Bactrim Ds 800/160) 1 tab PO DAILY [facility] HOME meds: Carvedilol 25 mg PO BID 06/28/18 Diphenoxylate HCl/Atropine [Diphenoxylate-Atrop 2.5-0.025] 1 tab PO QID PRN 06/28/18 Furosemide 40 mg PO TID 06/28/18 Levothyroxine Sodium 125 mcg PO QDAC 06/28/18 Potassium Chloride 20 meq PO DAILY 06/28/18 glipiZIDE [Glipizide] 2.5 mg PO BID 06/28/18 Objective - Vital Signs/Intake & Output Reviewed Vital Signs: Yes Vital Signs: Vital Signs x48h Temp Pulse Pulse Resp BP Pulse Ox 07/02/18 08:00 36.8 C 74 19 146/100 H 94 07/02/18 07:33 70 18 Intake & Output: Intake & Output 06/29/18 06/30/18 07/01/18 07/02/18 23:59 23:59 23:59 23:59 Intake Total 2150 716 3050 500 Output Total 700 1950 1450 951 Balance 1450 1234 1600 451 - Objective General Appearance: positive: Alert, Moderate distress, Anxious Eyes Bilateral: positive: PERRL Eyes: OU Conjunctivae pale ENT: positive: Pharynx nml, No signs of dehydration Neck: positive: No JVD, Trachea midline, Lymphadenopathy (R), Lymphadenopathy (L), Stiff neck Respiratory: positive: Chest non-tender, Wheezes, Rhonchi Cardiovascular: positive: Irregularly irregular, Tachycardia, Systolic murmur, Gallop/S3, Decreased pulse(s) Peripheral Pulses: 1+ Radial (R), 1+ Radial (L) Abdomen: positive: Non-tender, Nml bowel sounds, Other (rounded, soft) Back: positive: Nml inspection Skin: positive: No rash, Warm, Dry, Cyanosis, Pallor Extremities: positive: Pedal edema, Joint swelling Neurologic/Psychiatric: positive: CN's nml (2-12), Motor nml, Sensation nml, Disoriented to time, Weakness, Depressed mood/affect, Other (sluggish speech, forgetful) Reflexes: Bicep (R): 3+, Bicep (L): 3+ - Lab Results Fish Bones: 07/02/18 05:10 07/02/18 05:10 Other Labs: Lab Results x24hrs 07/02/18 07/02/18 07/02/18 Range/Units 12:06 09:15 08:01 WBC (4.8-10.8) x10^3/uL RBC (4.20-5.40) 10^6/uL Hgb (12.0-16.0) g/dL Hct (37.0-47.0) % MCV (81.0-99.0) fL MCH (27.0-31.0) pg MCHC (32.0-36.0) g/dL RDW (12.0-15.0) % Plt Count (130-450) 10^3/uL MPV (7.9-10.8) fL Neut # (Auto) (1.5-6.6) 10^3/uL Lymph # (Auto) (1.5-3.5) 10^3/uL Bowie # (Auto) (0.0-1.0) 10^3/uL Eos # (Auto) (0.0-0.7) 10^3/uL Baso # (Auto) (0.0-0.1) 10^3/uL Absolute Nucleated RBC x10^3/uL Nucleated RBC % /100WBC Sodium (135-145) mmol/L Potassium (3.5-5.0) mmol/L Chloride (101-111) mmol/L Carbon Dioxide (21-32) mmol/L Anion Gap (6-13) BUN (6-20) mg/dL Creatinine (0.4-1.0) mg/dL Estimated GFR (MDRD) (>89) Glucose (70-100) mg/dL POC Whole Bld Glucose 107 H 129 H (70 - 100) mg/dL Calcium (8.5-10.3) mg/dL Magnesium (1.7-2.8) mg/dL Total Bilirubin (0.2-1.0) mg/dL AST (10-42) IU/L ALT (10-60) IU/L Alkaline Phosphatase (42-121) IU/L Total Creatine Kinase 89 (22-269) IU/L B-Natriuretic Peptide (5-100) pg/mL Total Protein (6.7-8.2) g/dL Albumin (3.2-5.5) g/dL Globulin (2.1-4.2) g/dL Albumin/Globulin Ratio (1.0-2.2) 07/02/18 07/02/18 07/02/18 Range/Units 05:10 05:10 05:10 WBC 8.5 (4.8-10.8) x10^3/uL RBC 3.19 L (4.20-5.40) 10^6/uL Hgb 9.8 L (12.0-16.0) g/dL Hct 30.5 L (37.0-47.0) % MCV 95.5 (81.0-99.0) fL MCH 30.7 (27.0-31.0) pg MCHC 32.1 (32.0-36.0) g/dL RDW 14.0 (12.0-15.0) % Plt Count 207 (130-450) 10^3/uL MPV 8.9 (7.9-10.8) fL Neut # (Auto) 6.0 (1.5-6.6) 10^3/uL Lymph # (Auto) 1.2 L (1.5-3.5) 10^3/uL Bowie # (Auto) 0.7 (0.0-1.0) 10^3/uL Eos # (Auto) 0.4 (0.0-0.7) 10^3/uL Baso # (Auto) 0.1 (0.0-0.1) 10^3/uL Absolute Nucleated RBC 0.01 x10^3/uL Nucleated RBC % 0.1 /100WBC Sodium 140 (135-145) mmol/L Potassium 5.6 H (3.5-5.0) mmol/L Chloride 114 H (101-111) mmol/L Carbon Dioxide 22 (21-32) mmol/L Anion Gap 4.0 L (6-13) BUN 54 H (6-20) mg/dL Creatinine 2.1 H (0.4-1.0) mg/dL Estimated GFR (MDRD) 22 L (>89) Glucose 131 H (70-100) mg/dL POC Whole Bld Glucose (70 - 100) mg/dL Calcium 8.3 L (8.5-10.3) mg/dL Magnesium 2.0 (1.7-2.8) mg/dL Total Bilirubin 0.5 (0.2-1.0) mg/dL AST 18 (10-42) IU/L ALT 29 (10-60) IU/L Alkaline Phosphatase 83 (42-121) IU/L Total Creatine Kinase (22-269) IU/L B-Natriuretic Peptide 702 H (5-100) pg/mL Total Protein 5.9 L (6.7-8.2) g/dL Albumin 2.5 L (3.2-5.5) g/dL Globulin 3.4 (2.1-4.2) g/dL Albumin/Globulin Ratio 0.7 L (1.0-2.2) 07/01/18 07/01/18 Range/Units 20:28 16:40 WBC (4.8-10.8) x10^3/uL RBC (4.20-5.40) 10^6/uL Hgb (12.0-16.0) g/dL Hct (37.0-47.0) % MCV (81.0-99.0) fL MCH (27.0-31.0) pg MCHC (32.0-36.0) g/dL RDW (12.0-15.0) % Plt Count (130-450) 10^3/uL MPV (7.9-10.8) fL Neut # (Auto) (1.5-6.6) 10^3/uL Lymph # (Auto) (1.5-3.5) 10^3/uL Bowie # (Auto) (0.0-1.0) 10^3/uL Eos # (Auto) (0.0-0.7) 10^3/uL Baso # (Auto) (0.0-0.1) 10^3/uL Absolute Nucleated RBC x10^3/uL Nucleated RBC % /100WBC Sodium (135-145) mmol/L Potassium (3.5-5.0) mmol/L Chloride (101-111) mmol/L Carbon Dioxide (21-32) mmol/L Anion Gap (6-13) BUN (6-20) mg/dL Creatinine (0.4-1.0) mg/dL Estimated GFR (MDRD) (>89) Glucose (70-100) mg/dL POC Whole Bld Glucose 152 H 131 H (70 - 100) mg/dL Calcium (8.5-10.3) mg/dL Magnesium (1.7-2.8) mg/dL Total Bilirubin (0.2-1.0) mg/dL AST (10-42) IU/L ALT (10-60) IU/L Alkaline Phosphatase (42-121) IU/L Total Creatine Kinase (22-269) IU/L B-Natriuretic Peptide (5-100) pg/mL Total Protein (6.7-8.2) g/dL Albumin (3.2-5.5) g/dL Globulin (2.1-4.2) g/dL Albumin/Globulin Ratio (1.0-2.2) ABX Reporting Has patient been on IV antibiotics over the past 48 hours?: Yes Sepsis Event Note (H) - Evaluation Current Stage of Sepsis: Ruled out Assessment/Plan - Problem List (1) E. 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 Impression: - Patient has an established Meat Process Worker, but no recent echo on file with us - Patient displays evidence of combined failure with having a huge abdominal girth, chronic BLE edema, poor activity tolerance, orthopnea, and poor perfusion based on skin - Weight is up at least 2 Kg - Now on oxygen, worse than yesterday Plan: Continue BB, diuretics, attempt a limited Echo in the AM to evaluate most recent EF (3) [id number] kidney injury Impression: - Known to have stage 4 CKD, GFR is normally 20 - Likely worsened this admission due to rhabdo, acute infection - Creatinine now 2.0 - Urine output has been ~1200 mL on day shift and patient is finding the Purewick helpful - 1400 mL out today Plan: IV lasix x1 today, start Spironolactone, stop potassium daily (4) Rhabdomyolysis Impression: - Resolved, last CK was 89 - Renal function back to baseline Plan: Diuretics were resumed Qualifiers: Rhabdomyolysis type: traumatic Encounter type: initial encounter Qualified Code(s): T79.6XXA - Traumatic ischemia of muscle, initial encounter (5) Diabetes mellitus, type II Impression: - Patient is prescribed glypizide at home- now stopped for NAIDA - Blood sugars have been 100-140 for the past 24 hours, no hypoglycemia - Patient complains of too little vegetables since her admission Plan: Continue SSI, ACHS blood sugars, carb controlled diet Qualifiers: Diabetes mellitus alf insulin use: with desktop publishing associate use (6) Hypoglycemia Impression: - S/p N/V/D for a few days leading up to this admission - Had a very poor appetite,that has improved each day - Continue carb control diet Plan: ACHS, SSI and low dose glypizide, hypoglycemia protocol (7) Hypothyroidism Impression: - TSH was 1.62 on 06/28/2018 - Continue synthroid at home dose of 125 mcg daily Qualifiers: Hypothyroidism type: acquired Qualified Code(s): E03.9 - Hypothyroidism, unspecified (8) Asthma Impression: - Patient wishes to have her rescue inhaler - Scheduled nebs, see MAR - Incentive spirometer added - Now requires 2L per nasal cannula, indicating worsening CHF Plan: Continue nebs per respiratory Qualifiers: Asthma severity: moderate Asthma persistence: persistent Asthma complication type: uncomplicated Qualified Code(s): J45.40 - Moderate persistent asthma, uncomplicated (9) Venous stasis dermatitis of both lower extremities Impression: - see chart for photos - continues to have non-healing ulcers to BLEs - Wound care provider has evaluated Plan: Continue diuretics, continue wound cares
[2018-07-02] MEDS ORDERED: ZINC OXIDE 20% OINT 28.35 GM TUBE TOP PRN (18:07)
[2018-07-03] MEDS: SODIUM CHLORIDE FLUSH 0.9% 10 ML SYRINGE IVP SCH ×4 (00:09→23:40)
[2018-07-03] MEDS: ACETAMINOPHEN 325 MG TABLET PO PRN ×3 (00:17→23:40)
[2018-07-03] MEDS: LEVOTHYROXINE 125 MCG TABLET PO SCH (06:37)
[2018-07-03] MEDS: FUROSEMIDE 40 MG/4 ML VIAL IVP SCH (06:40)
[2018-07-03] MEDS: INSULIN ASPART 300 UNIT/3 ML PEN SUBQ SCH ×4 (08:24→21:46)
[2018-07-03 08:26] LABS: BASOPHILS # (AUTO) 0.1 10^3/uL (0.0-0.1); BASOPHILS % (AUTO) 2.3 %; EOSINOPHILS # (AUTO) 0.3 10^3/uL (0.0-0.7); EOSINOPHILS % (AUTO) 4.7 %; LYMPHOCYTES # (AUTO) 1.2 10^3/uL (1.5-3.5); LYMPHOCYTES % (AUTO) 19.3 %; MEAN CORPUSCULAR HEMOGLOBIN 31.3 pg (27.0-31.0); MEAN CORPUSCULAR HGB CONC 33.6 g/dL (32.0-36.0); MEAN CORPUSCULAR VOLUME 93.2 fL (81.0-99.0); MEAN PLATELET VOLUME 8.5 fL (7.9-10.8); MONOCYTES # (AUTO) 0.6 10^3/uL (0.0-1.0); MONOCYTES % (AUTO) 9.2 %; NEUTROPHILS # (AUTO) 4.2 10^3/uL (1.5-6.6); NEUTROPHILS % (AUTO) 64.5 %; PLT - PLATELET COUNT 188 10^3/uL (130-450); RED BLOOD COUNT 2.87 10^6/uL (4.20-5.40); RED CELL DISTRIBUTION WIDTH 13.1 % (12.0-15.0); WHITE BLOOD COUNT 6.5 x10^3/uL (4.8-10.8)
[2018-07-03 08:48] LABS: ALBUMIN 2.6 g/dL (3.2-5.5); ALBUMIN/GLOBULIN RATIO 0.8 (1.0-2.2); BILIRUBIN,TOTAL 0.4 mg/dL (0.2-1.0); CALCIUM 8.3 mg/dL (8.5-10.3); CREATININE 2.4 mg/dL (0.4-1.0); MAGNESIUM 1.9 mg/dL (1.7-2.8); TOTAL PROTEIN 5.9 g/dL (6.7-8.2)
[2018-07-03] MEDS: DOCUSATE SODIUM 250 MG CAPSULE PO SCH (09:58)
[2018-07-03] MEDS: SULFAMETH/TRIMETH DS 800/160 MG TABLET PO SCH (09:58)
[2018-07-03] MEDS: CARVEDILOL 12.5 MG TABLET PO SCH ×2 (09:58→21:47)
[2018-07-03] MEDS: SPIRONOLACTONE 25 MG TABLET PO SCH ×2 (09:58→17:57)
[2018-07-03] MEDS: SENNA 8.6 MG TABLET PO SCH (09:58)
[2018-07-03] MEDS: FAMOTIDINE 20 MG TABLET PO SCH (09:59)
[2018-07-03] MEDS: HEPARIN 5,000 UNIT/ML VIAL SUBQ SCH ×2 (09:59→21:44)
[2018-07-03] MEDS: POLYETHYLENE GLYCOL 3350 17 GM PACKET PO SCH (10:04)
--- NOTE | 2018-07-03 11:33 | XRAY Report ---
Reason: SOB Procedure Date: 07/03/2018 Accession Number: [id number] / [id number] Procedure: XR - Chest 1 View X-Ray CPT Code: 07613 FULL RESULT: EXAM: CHEST RADIOGRAPHY EXAM DATE: 07/03/2018 11:03 AM. CLINICAL HISTORY: Shortness of breath. COMPARISON: CHEST 1 VIEW 06/29/2018 10:04 AM. TECHNIQUE: 1 view. FINDINGS: Lungs/Pleura: Lungs are hypoinflated. There is perihilar vascular crowding. Slight increase in nonspecific subsegmental right basilar opacity most likely atelectasis. No appreciable effusion or extra ventilatory air. Mediastinum: Heart size appears borderline enlarged for technique but unchanged. Mediastinal and hilar contours are stable. Other: Stable appearance of triple lead left pectoral pacing device with leads in stable position. IMPRESSION: Hypoinflation. Slight increase in right basilar opacity favors atelectasis. RADIA
[2018-07-03] MEDS: NYSTATIN CREAM 15 GM TUBE TOP SCH ×2 (15:26→21:47)
--- NOTE | 2018-07-03 15:48 | PROVIDER PROGRESS NOTE ---
Subjective - Subjective Pt reports feeling: No change Subjective: pt is still presenting SOB, generalized weakness. pt denies fever, chill, chest pain. Current Medications - Current Medications Current Medications: Active Medications Acetaminophen (Tylenol) 650 mg PO Q4HR PRN PRN Reason: Pain 1 to 4 Last Admin: 07/03/18 00:17 Dose: 650 mg Albuterol () 2.5 mg INH RTQ4H PRN PRN Reason: Wheezing Last Admin: 07/02/18 07:39 Dose: 2.5 mg Carvedilol (Coreg) 37.5 mg PO BID PENDING SALE TO [facility] Last Admin: 07/03/18 09:58 Dose: 37.5 mg Docusate Sodium (Colace 250mg Capsule) 250 - 500 mg PO DAILY PENDING SALE TO [facility] Last Admin: 07/03/18 09:58 Dose: 250 mg Famotidine (Pepcid) 20 mg PO DAILY PENDING SALE TO [facility] Last Admin: 07/03/18 09:59 Dose: 20 mg Furosemide (Lasix Inj 20mg Vial) 20 mg IVP BIDDIURETIC PENDING SALE TO [facility] Heparin Sodium (Porcine) () 5,000 unit SUBQ BID PENDING SALE TO [facility] Last Admin: 07/03/18 09:59 Dose: 5,000 unit Hydralazine HCl (Apresoline Inj) 10 mg IVP QID PRN PRN Reason: Hypertensive Emergency Insulin Aspart (Novolog) 1 - 5 unit SUBQ 0800,1200,1700,2100 PENDING SALE TO [facility]; Protocol Last Admin: 07/03/18 11:59 Dose: Not Given Levothyroxine Sodium (Synthroid) 125 mcg PO QDAC PENDING SALE TO [facility] Last Admin: 07/03/18 06:37 Dose: 125 mcg Mineral Oil (Cavilon) 1 applic TOP PRN PRN PRN Reason: Skin Care Last Admin: 07/02/18 09:12 Dose: 1 applic Multi-Ingredient Ointment (Zinc Oxide) 1 applic TOP PRN PRN PRN Reason: Skin Care Nystatin (Mycostatin Cream) 1 applic TOP BID PENDING SALE TO [facility] Last Admin: 07/03/18 15:26 Dose: Not Given Ondansetron HCl (Zofran Inj) 4 mg IVP Q6HR PRN PRN Reason: Nausea / Vomiting Polyethylene Glycol (Miralax) 17 gm PO DAILY PENDING SALE TO [facility] Last Admin: 07/03/18 10:04 Dose: Not Given Senna (Senokot) 8.6 - 17.2 mg PO DAILY PENDING SALE TO [facility] Last Admin: 07/03/18 09:58 Dose: 8.6 mg Senna (Senokot) 17.2 - 25.8 mg PO DAILY PRN PRN Reason: Bowel Protocol Sodium Chloride (Normal Saline Flush 0.9%) 10 ml IVP PRN PRN PRN Reason: NEEDED PER PROVIDER ORDERS Last Admin: 07/02/18 14:10 Dose: 20 ml Sodium Chloride (Normal Saline Flush 0.9%) 10 ml IVP 0100,0900,1700 PENDING SALE TO [facility] Last Admin: 07/03/18 15:26 Dose: Not Given Spironolactone (Aldactone) 25 mg PO BIDWM PENDING SALE TO [facility] Last Admin: 07/03/18 09:58 Dose: 25 mg Trimethoprim/Sulfamethoxazole (Bactrim Ds 800/160) 1 tab PO DAILY PENDING SALE TO [facility] Last Admin: 07/03/18 09:58 Dose: 1 tab Carvedilol 25 mg PO BID 06/28/18 Diphenoxylate HCl/Atropine [Diphenoxylate-Atrop 2.5-0.025] 1 tab PO QID PRN 06/28/18 Furosemide 40 mg PO TID 06/28/18 Levothyroxine Sodium 125 mcg PO QDAC 06/28/18 Potassium Chloride 20 meq PO DAILY 06/28/18 glipiZIDE [Glipizide] 2.5 mg PO BID 06/28/18 Objective - Vital Signs/Intake & Output Reviewed Vital Signs: Yes Vital Signs: Vital Signs x48h Temp Pulse Pulse Resp BP Pulse Ox 07/03/18 14:57 36.6 C 66 18 96 07/03/18 09:50 66 18 07/03/18 07:53 36.6 C 65 18 169/51 H 96 Intake & Output: Intake & Output 06/30/18 07/01/18 07/02/18 07/03/18 23:59 23:59 23:59 23:59 Intake Total 716 3050 736 780 Output Total 4372 0779 7031 850 Balance -1234 1600 -5 -70 - Objective General Appearance: positive: No acute distress, Alert. negative: Lethargic Eyes Bilateral: positive: Normal inspection, PERRL, No lid inflammation, Conjunctivae nml ENT: positive: ENT inspection nml, Pharynx nml, No signs of dehydration. negative: Purulent nasal drainage, Pharyngeal erythema, Oral lesions Neck: positive: Nml inspection, Thyroid nml, No JVD, Trachea midline. negative: Thyromegaly, Lymphadenopathy (R), Lymphadenopathy (L), Stiff neck, Swelling/bruising, Tracheal deviation Respiratory: positive: Chest non-tender, Wheezes. negative: No respiratory distress, Breath sounds nml - Lab Results Fish Bones: 07/03/18 08:20 07/03/18 08:20 Other Labs: Lab Results x24hrs 07/03/18 07/03/18 07/03/18 Range/Units 11:44 08:20 08:20 WBC (4.8-10.8) x10^3/uL RBC (4.20-5.40) 10^6/uL Hgb (12.0-16.0) g/dL Hct (37.0-47.0) % MCV (81.0-99.0) fL MCH (27.0-31.0) pg MCHC (32.0-36.0) g/dL RDW (12.0-15.0) % Plt Count (130-450) 10^3/uL MPV (7.9-10.8) fL Neut # (Auto) (1.5-6.6) 10^3/uL Lymph # (Auto) (1.5-3.5) 10^3/uL Iron # (Auto) (0.0-1.0) 10^3/uL Eos # (Auto) (0.0-0.7) 10^3/uL Baso # (Auto) (0.0-0.1) 10^3/uL Absolute Nucleated RBC x10^3/uL Nucleated RBC % /100WBC Sodium 140 (135-145) mmol/L Potassium 5.2 H (3.5-5.0) mmol/L Chloride 111 (101-111) mmol/L Carbon Dioxide 21 (21-32) mmol/L Anion Gap 8.0 (6-13) BUN 56 H (6-20) mg/dL Creatinine 2.4 H (0.4-1.0) mg/dL Estimated GFR (MDRD) 19 L (>89) Glucose 117 H (70-100) mg/dL POC Whole Bld Glucose 122 H (70 - 100) mg/dL Calcium 8.3 L (8.5-10.3) mg/dL Magnesium 1.9 (1.7-2.8) mg/dL Total Bilirubin 0.4 (0.2-1.0) mg/dL AST 17 (10-42) IU/L ALT 27 (10-60) IU/L Alkaline Phosphatase 81 (42-121) IU/L B-Natriuretic Peptide 505 H (5-100) pg/mL Total Protein 5.9 L (6.7-8.2) g/dL Albumin 2.6 L (3.2-5.5) g/dL Globulin 3.3 (2.1-4.2) g/dL Albumin/Globulin Ratio 0.8 L (1.0-2.2) 07/03/18 07/03/18 07/02/18 Range/Units 08:20 07:49 20:53 WBC 6.5 (4.8-10.8) x10^3/uL RBC 2.87 L (4.20-5.40) 10^6/uL Hgb 9.0 L (12.0-16.0) g/dL Hct 26.8 L (37.0-47.0) % MCV 93.2 (81.0-99.0) fL MCH 31.3 H (27.0-31.0) pg MCHC 33.6 (32.0-36.0) g/dL RDW 13.1 (12.0-15.0) % Plt Count 188 (130-450) 10^3/uL MPV 8.5 (7.9-10.8) fL Neut # (Auto) 4.2 (1.5-6.6) 10^3/uL Lymph # (Auto) 1.2 L (1.5-3.5) 10^3/uL Iron # (Auto) 0.6 (0.0-1.0) 10^3/uL Eos # (Auto) 0.3 (0.0-0.7) 10^3/uL Baso # (Auto) 0.1 (0.0-0.1) 10^3/uL Absolute Nucleated RBC 0.00 x10^3/uL Nucleated RBC % 0.1 /100WBC Sodium (135-145) mmol/L Potassium (3.5-5.0) mmol/L Chloride (101-111) mmol/L Carbon Dioxide (21-32) mmol/L Anion Gap (6-13) BUN (6-20) mg/dL Creatinine (0.4-1.0) mg/dL Estimated GFR (MDRD) (>89) Glucose (70-100) mg/dL POC Whole Bld Glucose 103 H 167 H (70 - 100) mg/dL Calcium (8.5-10.3) mg/dL Magnesium (1.7-2.8) mg/dL Total Bilirubin (0.2-1.0) mg/dL AST (10-42) IU/L ALT (10-60) IU/L Alkaline Phosphatase (42-121) IU/L B-Natriuretic Peptide (5-100) pg/mL Total Protein (6.7-8.2) g/dL Albumin (3.2-5.5) g/dL Globulin (2.1-4.2) g/dL Albumin/Globulin Ratio (1.0-2.2) 07/02/18 Range/Units 16:54 WBC (4.8-10.8) x10^3/uL RBC (4.20-5.40) 10^6/uL Hgb (12.0-16.0) g/dL Hct (37.0-47.0) % MCV (81.0-99.0) fL MCH (27.0-31.0) pg MCHC (32.0-36.0) g/dL RDW (12.0-15.0) % Plt Count (130-450) 10^3/uL MPV (7.9-10.8) fL Neut # (Auto) (1.5-6.6) 10^3/uL Lymph # (Auto) (1.5-3.5) 10^3/uL Iron # (Auto) (0.0-1.0) 10^3/uL Eos # (Auto) (0.0-0.7) 10^3/uL Baso # (Auto) (0.0-0.1) 10^3/uL Absolute Nucleated RBC x10^3/uL Nucleated RBC % /100WBC Sodium (135-145) mmol/L Potassium (3.5-5.0) mmol/L Chloride (101-111) mmol/L Carbon Dioxide (21-32) mmol/L Anion Gap (6-13) BUN (6-20) mg/dL Creatinine (0.4-1.0) mg/dL Estimated GFR (MDRD) (>89) Glucose (70-100) mg/dL POC Whole Bld Glucose 130 H (70 - 100) mg/dL Calcium (8.5-10.3) mg/dL Magnesium (1.7-2.8) mg/dL Total Bilirubin (0.2-1.0) mg/dL AST (10-42) IU/L ALT (10-60) IU/L Alkaline Phosphatase (42-121) IU/L B-Natriuretic Peptide (5-100) pg/mL Total Protein (6.7-8.2) g/dL Albumin (3.2-5.5) g/dL Globulin (2.1-4.2) g/dL Albumin/Globulin Ratio (1.0-2.2) Sepsis Event Note (H) - Evaluation Current Stage of Sepsis: Ruled out Assessment/Plan - Problem List (1) Hypoglycemia Impression: (1) E. coli UTI (urinary tract infection) Impression: stable, WBC is normal, Continue PO antibiotic, use pure wick while in bed, I/O (2) diastolic ACC/AHA stage C congestive heart failure ECHO reveals normal EF, pt present leg edema, pleural effusion, diastolic CHF Continue BB, diuretics lasix, coreg and spironolactone (3) [id number] kidney injury, cardio/renal syndrome worsen, likely to be caused by diuretics, reduce dosage (4) Rhabdomyolysis resolved (5) Diabetes mellitus, type II stable, continue slide scale (6) Hypoglycemia resolved, followup hypoglycemia protocol (7) Hypothyroidism stable, TSH normal (8) Asthma continue albuterol PRN (9) Venous stasis dermatitis of both lower extremities stable, Continue diuretics, continue wound cares, rise of foot because of pt's hx of multiple co-moribidity, pt is slow in the recovery, and inpt time is over 96Hr
[2018-07-04 05:40] LABS: BASOPHILS # (AUTO) 0.1 10^3/uL (0.0-0.1); BASOPHILS % (AUTO) 1.4 %; EOSINOPHILS # (AUTO) 0.3 10^3/uL (0.0-0.7); EOSINOPHILS % (AUTO) 4.6 %; HGB - HEMOGLOBIN 8.7 g/dL (12.0-16.0); LYMPHOCYTES # (AUTO) 1.4 10^3/uL (1.5-3.5); LYMPHOCYTES % (AUTO) 23.4 %; MEAN CORPUSCULAR HEMOGLOBIN 30.3 pg (27.0-31.0); MEAN CORPUSCULAR HGB CONC 32.7 g/dL (32.0-36.0); MEAN CORPUSCULAR VOLUME 92.8 fL (81.0-99.0); MEAN PLATELET VOLUME 8.4 fL (7.9-10.8); MONOCYTES # (AUTO) 0.6 10^3/uL (0.0-1.0); MONOCYTES % (AUTO) 9.2 %; NEUTROPHILS # (AUTO) 3.7 10^3/uL (1.5-6.6); NEUTROPHILS % (AUTO) 61.4 %; PLT - PLATELET COUNT 198 10^3/uL (130-450); RED BLOOD COUNT 2.88 10^6/uL (4.20-5.40); RED CELL DISTRIBUTION WIDTH 13.2 % (12.0-15.0)
[2018-07-04 05:52] LABS: ALBUMIN 2.7 g/dL (3.2-5.5); ALBUMIN/GLOBULIN RATIO 0.9 (1.0-2.2); BILIRUBIN,TOTAL 0.5 mg/dL (0.2-1.0); CALCIUM 8.6 mg/dL (8.5-10.3); CREATININE 2.4 mg/dL (0.4-1.0); TOTAL PROTEIN 5.6 g/dL (6.7-8.2)
[2018-07-04] MEDS: FUROSEMIDE 20 MG/2 ML VIAL IVP SCH ×2 (07:04→15:36)
[2018-07-04] MEDS: SODIUM CHLORIDE FLUSH 0.9% 10 ML SYRINGE IVP PRN (07:04)
[2018-07-04] MEDS: LEVOTHYROXINE 125 MCG TABLET PO SCH (07:05)
[2018-07-04] MEDS: ALBUTEROL NEB 2.5 MG/3 ML INH PRN (07:13)
[2018-07-04 07:45] VITALS: BP 154/89
[2018-07-04] MEDS: SPIRONOLACTONE 25 MG TABLET PO SCH (08:29)
[2018-07-04] MEDS: INSULIN ASPART 300 UNIT/3 ML PEN SUBQ SCH ×2 (08:30→15:35)
[2018-07-04] MEDS: CARVEDILOL 12.5 MG TABLET PO SCH (11:06)
[2018-07-04] MEDS: FAMOTIDINE 20 MG TABLET PO SCH (11:06)
[2018-07-04] MEDS: SULFAMETH/TRIMETH DS 800/160 MG TABLET PO SCH (11:06)
[2018-07-04] MEDS: SENNA 8.6 MG TABLET PO SCH (11:07)
[2018-07-04] MEDS: HEPARIN 5,000 UNIT/ML VIAL SUBQ SCH (11:10)
[2018-07-04] MEDS: POLYETHYLENE GLYCOL 3350 17 GM PACKET PO SCH (11:13)
[2018-07-04] MEDS: DOCUSATE SODIUM 250 MG CAPSULE PO SCH (11:13)
--- NOTE | 2018-07-04 11:42 | Discharge Plan ---
"Discharge Plan for SNF / [facility] - Discharge Plan And Transition Orders Disposition: 03 SNF DC/Xfer Allergies and Adverse Reactions: Allergies Allergy/AdvReac Type Severity Reaction Status Date / Time allopurinol Allergy Itching Verified 06/27/18 22:04 baclofen Allergy Itching Verified 06/27/18 22:03 clindamycin Allergy Itching Verified 06/27/18 21:56 codeine Allergy Itching Verified 06/27/18 21:57 desipramine Allergy Itching Verified 06/27/18 21:58 doxycycline Allergy Itching Verified 06/27/18 21:59 Horse/Equine Containing Allergy Itching Verified 06/27/18 21:59 Products hydrocodone Allergy Itching Verified 06/27/18 22:01 lactose Allergy Cramps Verified 06/27/18 22:00 NSAIDS (Non-Steroidal Allergy Itching Verified 06/27/18 22:02 Anti-Inflamma tramadol Allergy Itching Verified 06/27/18 22:03 egg AdvReac Intermediate Respiratory Verified 06/27/18 21:56 aspirin AdvReac Respiratory Verified 06/27/18 21:56 Beef Containing Products AdvReac Respiratory Verified 06/27/18 22:04 iodine AdvReac Respiratory Verified 06/27/18 22:02 latex AdvReac Respiratory Verified 06/27/18 22:00 shellfish derived AdvReac Respiratory Verified 06/27/18 22:02 - SNF / [facility] Transition Orders Admit to (Facility): [facility] Under the care of (Name): admission provider of [facility] Discharge Diagnosis: UTI, diastolic CHF, CKD, Rhabdomyolysis, DM2, hypoglycemia, hypothroidism, Asthma, venous statis dermatitis of bilateral lower extremities, obses Medicare Certification Statement: I certify that [facility] residential care is medically necessary on a continuing basis for any of the conditions for which she/he is receiving care during hospitalization. Notify PCP of admission and forward orders to primary provider for signature. Weight on admission and: Daily Call PCP immediately if weight increases by: 2 kg Other Notification Orders: Call PCP immediately if patient develops dyspnea, chest pain/tightness or edema. House Bowel Program: Yes Additional Bowel Program Orders: If no BM after 2 days, nurse may give M.O.M. 30ml PO PRN and/or ducolax Supp 1 MN and/or EFRA 250mg P.O., and/or senna 1-2 tabs PO. On day 3 nurse may give repeat above order until residents constipation is resolved. Annual Influenza Vaccine (between Dec 02 and July 01): Yes Two-step PPD per [facility] [id number] or approved exception documents: Yes Treatments & Other Orders: pt may followup the admission health provider of [facility] when pt is arrival to the facility. Pt was admitted for hypoglycemia and Rhabdomyolysis which are resolved. 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 Pt's home meds Lasix 40mg tid is now reduced to bid because of slight reduced GFR, please closely monitor pt fluid status. Oxygen Orders: PRN Lab Tests or X-ray Orders: followup admission health provider [facility], advise to recheck BMP at 07/06/18 Medication Orders: PLEASE REFER TO THE DISCHARGE MEDICATION LIST. Insulin Orders?: No - Medications New Prescriptions: Carvedilol [Coreg] 37.5 mg PO BID #10 tablet Furosemide 40 mg PO BID #10 tablet Sulfamethox/Trimeth 800/160 [Bactrim Ds] 1 tab PO DAILY #4 tablet - Diet Type: Geriatric Texture: Regular Liquids: Thin May have monthly special meal: Yes - Therapies | Activity Therapy: Evaluation | Treat if indicated: PT, OT Rehabilitation Potential: Maximize functional status Activity: Activity as Tolerated Additional Instructions: pt may followup the admission health provider of [facility] when pt is arrival to the facility. Pt was admitted for hypoglycemia and Rhabdomyolysis which are resolved. 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 Pt's home meds Lasix 40mg tid is now reduced to bid because of slight reduced GFR, please closely monitor pt fluid status."
--- NOTE | 2018-07-04 12:44 | DISCHARGE SUMMARY ---
Discharge Summary Discharge Date: 07/04/18 Discharging Provider: MILLARD Primary Care Provider: Dr. Hickman Condition at Discharge: Good Discharge Disposition: SNF DC/Xfer Discharge Facility Name: [facility] - DIAGNOSES Admission Diagnoses: (1) Hypoglycemia (2) Rhabdomyolysis (3) chronic kidney injury (4) Hypothyroidism (5) Diabetes mellitus, type II (6) Rose rash of groin (7) Asthma (8) Necrobiosis lipoidica diabeticorum Discharge Diagnoses with Status of Each Condition: (1) Hypoglycemia (2) Rhabdomyolysis (3) chronic kidney injury (4) Hypothyroidism (5) Diabetes mellitus, type II (6) Rose rash of groin (7) Asthma (8) Necrobiosis lipoidica diabeticorum (9) diastolic CHF - [facility] History of Present Illness: refer from Dr. Silva's HPI on 07/04/18 as the following Patient is an 87 y/o female who presented to [facility] as a direct admit from [facility] for hypoglycemia. Her symptoms initially started 6 days ago when on night she ate something bad from her refrigerator. She had nausea, vomiting and diarrhea for three days. For those 3 days she was admitted at [facility]. She went home on Monday, had a frozen meal and her symptoms started again so she went back to the hospital that same day. She describes that she was was speaking complete "jibberish" when he healthcare or medical found her. She had not taken any of her medication except for carvedilol. She has generally had poor po intake this week. Today she slipped from the chair/recliner in which she normally sleeps and could not get up/ As a result she was flailing/thrashing around on the floor and hurt her knees, right shoulder and right wrist. It was here her it security specialist found her and called EMS. She was found to have a blood glucose of 30. She was transferred to [facility] because [facility] was on divert. Upon arrival her blood glucose was in the 50 despite having orange juice at [place] and being placed on a D5 drip. Further work up in [facility] included CK which came back elevated at 1475. At the time of my exam, she was resting comfortably. She denied chest pain, reports dyspnea with laying flat, hence she slips in her recliner. She reports chills but no fever. She uses a walker to get around the house. She drives herself but only in the day time. 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 pt is on Coreg and Lasix, continue closely pt and avoid fluid overload to pt (10) obese consult with pt loss of weight - ALLERGIES Allergies/Adverse Reactions: Allergies Allergy/AdvReac Type Severity Reaction Status Date / Time allopurinol Allergy Itching Verified 06/27/18 22:04 baclofen Allergy Itching Verified 06/27/18 22:03 clindamycin Allergy Itching Verified 06/27/18 21:56 codeine Allergy Itching Verified 06/27/18 21:57 desipramine Allergy Itching Verified 06/27/18 21:58 doxycycline Allergy Itching Verified 06/27/18 21:59 Horse/Equine Containing Allergy Itching Verified 06/27/18 21:59 Products hydrocodone Allergy Itching Verified 06/27/18 22:01 lactose Allergy Cramps Verified 06/27/18 22:00 NSAIDS (Non-Steroidal Allergy Itching Verified 06/27/18 22:02 Anti-Inflamma tramadol Allergy Itching Verified 06/27/18 22:03 egg AdvReac Intermediate Respiratory Verified 06/27/18 21:56 aspirin AdvReac Respiratory Verified 06/27/18 21:56 Beef Containing Products AdvReac Respiratory Verified 06/27/18 22:04 iodine AdvReac Respiratory Verified 06/27/18 22:02 latex AdvReac Respiratory Verified 06/27/18 22:00 shellfish derived AdvReac Respiratory Verified 06/27/18 22:02 - MEDICATIONS Home Medications: Ambulatory Orders Medication Instructions Recorded Confirmed Diphenoxylate HCl/Atropine 1 tab PO QID PRN 06/28/18 06/28/18 [Diphenoxylate-Atrop 2.5-0.025] Levothyroxine Sodium 125 mcg PO QDAC 06/28/18 06/28/18 Potassium Chloride 20 meq PO DAILY 06/28/18 06/28/18 glipiZIDE [Glipizide] 2.5 mg PO BID 06/28/18 06/28/18 Carvedilol [Coreg] 37.5 mg PO BID #30 tablet 07/04/18 Furosemide 40 mg PO BID #10 tablet 07/04/18 Sulfamethox/Trimeth 800/160 1 tab PO DAILY #4 tablet 07/04/18 [Bactrim Ds] - PHYSICAL EXAM AT DISCHARGE General Appearance: positive: No acute distress, Alert. negative: Lethargic Eyes Bilateral: positive: Normal inspection, PERRL, No lid inflammation, Conjunctivae nml ENT: positive: ENT inspection nml, Pharynx nml, No signs of dehydration. negative: Purulent nasal drainage, Pharyngeal erythema, Oral lesions Neck: positive: Nml inspection, Thyroid nml, No JVD, Trachea midline. negative: Thyromegaly, Lymphadenopathy (R), Lymphadenopathy (L), Stiff neck, Swelling/bruising, Tracheal deviation Respiratory: positive: Chest non-tender, No respiratory distress, Breath sounds nml. negative: Wheezes, Rales, Rhonchi Cardiovascular: positive: Regular rate & rhythm, No murmur, No gallop. negative: Irregularly irregular, Extrasystoles, Tachycardia, Bradycardia, JVD present, Systolic murmur, Diastolic murmur Peripheral Pulses: positive: 2+ Abdomen: positive: Non-tender, No organomegaly, Nml bowel sounds, No distention. negative: Tenderness, Guarding, Rebound Back: positive: Nml inspection. negative: CVA tenderness (R), CVA tenderness (L) Skin: positive: Color nml, No rash, Warm, Dry. negative: Cyanosis, Diaphoresis, Pallor Extremities: positive: Non-tender, Nml appearance. negative: Calf tenderness, Bryce's sign/cords Neurologic/Psychiatric: positive: Oriented x3, Sensation nml, Mood/affect nml. negative: Weakness, Sensory loss, Facial droop, Slurred/abnml speech, Depressed mood/affect - LABS Result Diagrams: 07/04/18 05:10 07/04/18 05:10 - SEPSIS Current Stage of Sepsis: Ruled out - FOLLOW UP Follow Up: pt may followup the admission health provider of [facility] when pt is arrival to the facility. Pt was admitted for hypoglycemia and Rhabdomyolysis which are resolved. 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 Pt's home meds Lasix 40mg tid is now reduced to bid because of slight reduced GFR, please closely monitor pt fluid status. recheck pt's BMP on 07/06/18 to monitor pt's renal function and potassium level - TIME SPENT Time Spent in Discharge (Minutes): 60
[2018-07-04] MEDS: SODIUM CHLORIDE FLUSH 0.9% 10 ML SYRINGE IVP SCH (15:34)
[2018-07-04] MEDS: NYSTATIN CREAM 15 GM TUBE TOP SCH (15:34)
== END 2018-07-04 14:10 | DRG 638 ==
LOC: MS3 18:12
PROVIDERS: ADMIT Nurse Practitioner Gerontology; ATTEND Nurse Practitioner Gerontology
DX: E11.649 Type 2 diabetes mellitus with hypoglycemia without coma (principal); I50.42 Chronic combined systolic (congestive) and diastolic (congestive) heart failure; Z68.42 Body mass index [BMI] 45.0-49.9, adult; I42.9 Cardiomyopathy, unspecified; J84.9 Interstitial pulmonary disease, unspecified; N39.0 Urinary tract infection, site not specified; T79.6XXA Traumatic ischemia of muscle, initial encounter; N18.4 Chronic kidney disease, stage 4 (severe); N17.9 Acute kidney failure, unspecified; W08.XXXA Fall from other furniture, initial encounter; E11.22 Type 2 diabetes mellitus with diabetic chronic kidney disease; E03.9 Hypothyroidism, unspecified; B37.2 Candidiasis of skin and nail; E11.620 Type 2 diabetes mellitus with diabetic dermatitis; E66.9 Obesity, unspecified; Z88.6 Allergy status to analgesic agent; Z91.041 Radiographic dye allergy status; Z91.012 Allergy to eggs; Z91.040 Latex allergy status; Z91.013 Allergy to seafood; J44.9 Chronic obstructive pulmonary disease, unspecified; F43.10 Post-traumatic stress disorder, unspecified; M19.90 Unspecified osteoarthritis, unspecified site; M79.7 Fibromyalgia; M81.0 Age-related osteoporosis without current pathological fracture; Z90.49 Acquired absence of other specified parts of digestive tract; Z95.0 Presence of cardiac pacemaker; B96.20 Unspecified Escherichia coli [E. coli] as the cause of diseases classified elsewhere; I87.2 Venous insufficiency (chronic) (peripheral)
CPT/HCPCS: 36415; 71045; 80053; 81001; 82550; 83036; 83735; 83880; 84443; 85025; 87086; 87181; 93306; 94640; 97110; 97116; 97161; 97166; 97530; A6250; A9270